=== PATIENT | male | born 1950 | race Caucasian/White ===

== ENCOUNTER → 2017-09-27 | Outpatient (CLI) | payer OTHER ==
[~2017-09-27] MED LIST: ASCA500 PO; ASCO10003 PO; ASPCH81X PO; ASPEC81 PO; CALC600T34 PO; CHOL1000 PO; CHOL100010 PO; GLUCTAB18 PO; LOSA100T2 PO; LOSA1TAB38 PO; MISCCAP80 PO; MISCTAB78 PO; MULT-1093 PO; MULT-506 PO; NAPR1TAB9 PO; PRLSR20 PO; PRT/20 PO; ROSU5TAB9 PO; SYN175 PO; TAMS0.4C38 PO; TRAM-10 PO; ZNTT/150 PO
--- NOTE | 2017-09-27 13:05 | DIAGNOSTIC IMAGING REPORT ---
MRI LEFT KNEE NO CONTRAST CLINICAL HISTORY: Left knee pain status post trauma COMPARISON STUDY: Outside conventional radiographic study dated 08/03/2017 FINDINGS: Imaging was performed in the sagittal, axial, and coronal planes. There is a nondisplaced subchondral fracture involving the medial aspect of the lateral tibial plateau with surrounding marrow edema. There is a subchondral cyst involving the medial aspect the medial tibial plateau. There is a subchondral cyst within the lateral aspect of the medial tibial plateau adjacent to cruciate insertion. There is a small suprapatellar joint effusion. The quadriceps and patellar tendons appear intact. The anterior and posterior cruciate ligaments appear intact. No tears a lateral meniscus are visualized. There is a horizontal tear involving the posterior horn of the medial meniscus. There is a small popliteal cyst. The medial and lateral collateral ligaments appear intact. There is an element of chondrosis involving both the medial and lateral joint compartments. IMPRESSION: 1. Tear involving the posterior horn the medial meniscus 2. No evidence of cruciate or collateral ligament disruption 3. Nondisplaced subchondral fracture involving the medial aspect of the lateral tibial plateau. Electronically signed by: Robin Busch M.D. 09/27/2017 1:03 PM Dictated Date/Time: 09/27/2017 12:58 PM
== END | disposition home or self-care (01) ==
LOC: C.MRIBC 11:56
PROVIDERS: ATTEND Orthopaedic Surgery
DX: S83.207A Unspecified tear of unspecified meniscus, current injury, left knee, initial encounter (principal); X58.XXXA Exposure to other specified factors, initial encounter

== ENCOUNTER → 2017-10-26 | Day surgery (SDC) | payer OTHER ==
[2017-10-01 09:24] VITALS: Ht 182.9 cm; Wt 111.4 kg
[~2017-10-26] VITALS: Ht 182.9 cm; Wt 111.4 kg
[~2017-10-26] MED LIST changes: -ASCA500 PO; -ASPEC81 PO; +ATROPINE SULFATE 0.1 MG/ML 5ML SYR IV PRN; +CEFAZOLIN 2000MG IV PUSH 10 ML IV SCH; -CHOL1000 PO; +EpHEDrine SULFATE INJ 50 MG/ML AMP IV PRN; +EpINEphrine INJ 1MG/ML AMP 1 MG/ML AMP ONE; +FENTANYL CITRATE INJ 50 MCG/1 ML 2 ML VIAL IV PRN; +FENTANYL CITRATE INJ 50 MCG/1 ML 2 ML VIAL ONE; -GLUCTAB18 PO; +KETOROLAC TROMETHAMINE 30 MG/ML VIAL ONE; +LACTATED RINGER'S 1000ML 1,000 ML IV SCH; +LIDOCAINE HCL 2% 2 ML VIAL (20MG/ML) ONE; -LOSA100T2 PO; +MIDAZOLAM HCL 1 MG/ML 2ML VIAL ONE; -MISCCAP80 PO; -MULT-506 PO; +ONDANSETRON INJ 2 MG/ML 2 ML VIAL IV PRN; +ONDANSETRON INJ 2 MG/ML 2 ML VIAL ONE; +OXYCODONE/ACETAMINOPHEN 5-325 TAB PO PRN; -PRLSR20 PO; +PROPOFOL IV EMULSION 10 MG/ML 20 ML VIAL IV ONE; +ROPIVACAINE 0.5% 5 MG/ML 30 ML VIAL ONE; -ROSU5TAB9 PO; +SODIUM CHLORIDE 0.9% 1000ML 1,000 ML IV SCH; -ZNTT/150 PO
--- NOTE | 2017-10-26 08:50 | History & Physical Bridge - SC ---
H&P Re-Evaluation Bridge Note: I have examined the patient, reviewed the History & Physical and in the interval since the performance of the History & Physical I have noted the following changes of clinical significance: No changes noted
[2017-10-26] MEDS: BUPIVACAINE 0.5 % 5 MG/1 ML MPF 30ML VIAL ONE ×2 (10:01→10:10)
--- NOTE | 2017-10-26 10:09 | [facility] Post Operative Brief Note ---
Immediate Operative Summary Operative Date Oct 26, 2017. Pre-Operative Diagnosis Left Knee Medial Meniscus Tear, Pain Post-Operative Diagnosis Same and Degenerative Joint Disease Procedure(s) Performed Left Knee Arthroscopy, Partial Medial and Lateral Meniscectomy, Removal of Loose Bodies Surgeon Dr. Macias Esthetician/Skin Therapist Surgeon(s) Kati De Los Santos PA-C Estimated Blood Loss 0ml Findings ABOVE Specimens None Anesthesia LMA Complication(s) None Disposition Recovery Room / PACU
--- NOTE | 2017-10-26 10:19 | Discharge Instructions-SurgCtr ---
Discharge Instructions Date of Service Oct 26, 2017. Visit Reason for Visit: Left Knee Medial Meniscus Tear, Pain Discharge Discharge Diagnosis / Problem: SAME ABOVE Discharge Goals Goal(s): Decrease discomfort, Improve function Activity Recommendations Activity Limitations: as noted below Lifting Limitations: gradually increase as tolerated Exercise/Sports Limitations: until after follow-up appointment Shower/Bathe: tomorrow Weightbearing Status: Left weightbearing (as tolerated) Anesthesia . Post Anesthesia Instructions: If you have had General Anesthesia or IV Sedation: * Do not drive today. * Resume driving when surgeon permits. * Do not make important decisions or sign legal documents today. * Call surgeon for: 1. Temperature elevations greater than 101 degrees F. 2. Uncontrollable pain. 3. Excessive bleeding. 4. Persistent nausea and vomiting. 5. Medication intolerance (nausea, vomiting or rash). * For nausea and vomiting use only clear liquids such as: tea, soda, bouillon until nausea subsides, then gradually increase diet as tolerated. * If you have any concerns or questions, call your surgeon's office. If physician is unavailable and it is an emergency, call 911 or go to the nearest emergency room. . Instructions / Follow-Up Instructions / Follow-Up MEDICATIONS: * Resume previous medications unless instructed otherwise by your surgeon. * Always take pain medication on a full stomach or with food to avoid upset stomach. * Do not drink alcohol or drive while taking narcotics. * Ibuprofen or Tylenol may be taken if narcotic not needed. SPECIAL CARE INSTRUCTIONS: __ None _X_ Keep extremity elevated and iced x 48 hours; apply ice 20-30 minutes 8-10 times/day. May remove at night. __ Crutches __ May discard when able __ Brace/Post-op shoe __ 24 hrs/day __ Remove at night _X_ Dressing __ Maintain until seen in office, may shower with plastic over site _X_ Remove dressings in 24-48 hours and then may shower _X_ Cover incisions with band-aids after showering __ Do not remove steri-strips Call physician if chills or temperature rises above 102 degrees or pain unrelieved by prescribed pain medications. Office [phone] Diet Recommendations Home Diet: resume previous diet Procedures Procedures Performed: Left Knee Arthroscopy, Partial Medial and Lateral Meniscectomy, Removal of Loose Bodies Pending Studies Studies pending at discharge: no Medical Emergencies . Who to Call and When: Medical Emergencies: If at any time you feel your situation is an emergency, please call 911 immediately. . Non-Emergent Contact Non-Emergency issues call your: Primary Care Provider . . "Provider Documentation" section prepared by Pierre De Los Santos. .
--- NOTE | 2017-10-26 10:51 | OPERATIVE REPORT ---
DATE OF OPERATION: 10/26/2017 PREOPERATIVE DIAGNOSIS: Medial meniscus tear left knee. POSTOPERATIVE DIAGNOSES: 1. Medial meniscus tear left knee. 2. Multiple small cartilaginous loose bodies throughout the left knee. 3. 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 4. Grade 2-3 DJD lateral tibial plateau. PROCEDURES: 1. Left knee arthroscopy. 2. Partial medial meniscectomy. 3. Removal of multiple small cartilaginous loose bodies. 4. Chondroplasty medial femoral condyle and lateral tibial plateau. SURGEON: Dr. Macias. RECEPTION INTERVIEWER: Pierre De Los Santos PA-C. ANESTHESIOLOGIST: Benedicto Watson M.D. ANESTHESIA: LMA. DRAINS: None. COMPLICATIONS: None. CONDITION: The patient tolerated the procedure well and returned to the recovery room in apparent satisfactory condition. INDICATIONS FOR SURGERY: Roger is a 67-year-old male who has had problems with the knee for quite some time. His exam, history and MRI are consistent with meniscus tear and recurrent effusions. Went over treatment options and elected to go ahead and proceed with surgery. Procedure, expected outcomes and side effects were all explained in detail. OPERATION AND FINDINGS: PROCEDURE: The patient was taken to the OR, at which time he was placed supine on the operating room table and put to sleep by anesthesia department. Examination of left knee was performed. Ligamentous marie was stable. He did have a knee effusion. Knee then was prepped and draped in usual sterile fashion for surgery, arthroscopic examination anteromedial and anterolateral portals. Immediately found a fair amount of fluid in his knee. Multiple loose bodies were floating throughout the knee area, 100s of them. We went ahead and washed all these out. Attention was given to the medial compartment, we found a posterior horn medial meniscus tear. We came in with upbiting scissors and full radius resector trimmed it back to a stable rim. We found articular changes to the tibial plateau, lateral side of his knee. He had medial femoral condyle, grade 2-3 debridement, chondroplasties were done here. There was a lot of synovitis in the knee joint that was shaved out. The knee then was copiously irrigated. All cannulas were removed. Portals were closed with 4-0 nylon sutures, 30 mL of ropivacaine, 10 mg of Toradol, and 1 mL of epinephrine had been placed in the knee joint. Placed a sterile dressing of Xeroform, 4 x 4, ABD, Sof-Rol, and Jarrell bandage and returned back to recovery room in apparent satisfactory condition. SURGICAL FINDINGS: Included: 1. Chronic medial meniscus tear. 2. He had multiple floating cartilaginous loose bodies. 3. 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 I attest to the content of the Intraoperative Record and any orders documented therein. Any exception s are noted below.
[2017-10-26 11:17] VITALS: TEMP 36.6
[2017-10-26 11:33] VITALS: BP 139/83; PULSE 68; O2SAT 97
--- NOTE | 2017-10-26 11:40 | Anesthesia Progress Nt - [facility] ---
Anesthesia Post Op Note Date & Time Oct 26, 2017 at 11:39 Vital Signs Pain Intensity: 0 Vital Signs Past 12 Hours Date Time Temp Pulse Resp B/P (MAP) Pulse Ox O2 Delivery O2 Flow Rate FiO2 10/26/17 11:33 68 16 139/83 (101) 97 Room Air 10/26/17 11:17 36.6 16 163/78 (106) 96 Room Air 10/26/17 11:01 139/75 10/26/17 10:58 60 17 10/26/17 10:58 60 17 95 10/26/17 10:56 140/83 10/26/17 10:53 64 17 10/26/17 10:53 59 17 95 10/26/17 10:52 62 15 10/26/17 10:52 61 15 96 10/26/17 10:51 122/78 10/26/17 10:47 62 17 94 10/26/17 10:47 62 17 10/26/17 10:46 147/82 10/26/17 10:42 64 14 10/26/17 10:42 62 14 95 10/26/17 10:41 145/83 10/26/17 10:40 36.9 95 Room Air 10/26/17 10:37 67 21 10/26/17 10:37 66 21 98 10/26/17 10:36 143/81 10/26/17 10:32 72 11 98 10/26/17 10:32 72 11 10/26/17 10:31 70 14 10/26/17 10:31 68 14 127/93 99 10/26/17 10:26 71 14 142/81 100 10/26/17 10:26 65 14 10/26/17 10:23 134/83 10/26/17 10:21 70 22 10/26/17 10:21 22 10/26/17 10:17 110/75 10/26/17 10:16 36.4 64 16 110/75 96 Mask 7 10/26/17 08:17 36.8 72 22 138/76 (96) 93 Room Air Notes Mental Status: alert / awake / arousable, participated in evaluation Pt Amnestic to Procedure: Yes Nausea / Vomiting: adequately controlled Pain: adequately controlled Airway Patency, RR, SpO2: stable & adequate BP & HR: stable & adequate Hydration State: stable & adequate Anesthetic Complications: no major complications apparent
== END | disposition home or self-care (01) ==
LOC: X.SURG 08:00
PROVIDERS: ATTEND Orthopaedic Surgery
DX: M23.222 Derangement of posterior horn of medial meniscus due to old tear or injury, left knee (principal); M17.12 Unilateral primary osteoarthritis, left knee; M23.42 Loose body in knee, left knee; I10 Essential (primary) hypertension; Z98.890 Other specified postprocedural states; Z90.89 Acquired absence of other organs; Z90.49 Acquired absence of other specified parts of digestive tract; Z85.850 Personal history of malignant neoplasm of thyroid

== ENCOUNTER 2018-03-23 02:33 | Inpatient (IN) | payer OTHER ==
[~2018-03-23] VITALS: Ht 185.4 cm; Wt 114.3 kg
[~2018-03-23 02:33] MED LIST changes: -ATROPINE SULFATE 0.1 MG/ML 5ML SYR IV PRN; -CEFAZOLIN 2000MG IV PUSH 10 ML IV SCH; -EpHEDrine SULFATE INJ 50 MG/ML AMP IV PRN; -EpINEphrine INJ 1MG/ML AMP 1 MG/ML AMP ONE; -FENTANYL CITRATE INJ 50 MCG/1 ML 2 ML VIAL IV PRN; -FENTANYL CITRATE INJ 50 MCG/1 ML 2 ML VIAL ONE; -KETOROLAC TROMETHAMINE 30 MG/ML VIAL ONE; -LACTATED RINGER'S 1000ML 1,000 ML IV SCH; -LIDOCAINE HCL 2% 2 ML VIAL (20MG/ML) ONE; -MIDAZOLAM HCL 1 MG/ML 2ML VIAL ONE; -ONDANSETRON INJ 2 MG/ML 2 ML VIAL IV PRN; -ONDANSETRON INJ 2 MG/ML 2 ML VIAL ONE; -OXYCODONE/ACETAMINOPHEN 5-325 TAB PO PRN; -PROPOFOL IV EMULSION 10 MG/ML 20 ML VIAL IV ONE; -ROPIVACAINE 0.5% 5 MG/ML 30 ML VIAL ONE; -SODIUM CHLORIDE 0.9% 1000ML 1,000 ML IV SCH
[2018-03-23] MEDS ORDERED: SODIUM CHLORIDE 0.9% 1000ML 1,000 ML IV STA (02:49)
[2018-03-23] MEDS ORDERED: HYDROmorphone INJ 1 MG/ML SYR IV STA (02:49)
[2018-03-23] MEDS ORDERED: ONDANSETRON INJ 2 MG/ML 2 ML VIAL IV STA (02:49)
[2018-03-23 03:03] LABS: BASO % 0.3 %; BASO ABS # 0.03 K/uL (0-0.2); EOS % 2.9 %; EOS ABS # 0.29 K/uL (0-0.5); HEMATOCRIT 41.2 % (42-52); HEMOGLOBIN 14.9 g/dL (14.0-18.0); IG# 0.03 K/uL (0.00-0.02); LYMPH % 16.1 %; LYMPH ABS # 1.61 K/uL (1.2-3.4); MEAN CORPUSCULAR HEMOGLOBIN 31.1 pg (25-34); MEAN CORPUSCULAR HGB CONC 36.2 g/dl (32-36); MEAN PLATELET VOLUME 8.7 fL (7.4-10.4); NEUT % 74.4 %; NEUT ABS # 7.43 K/uL (1.4-6.5); PLATELET COUNT 204 K/uL (130-400); RED CELL DISTRIBUTION WIDTH CV 12.2 % (11.5-14.5); RED CELL DISTRIBUTION WIDTH SD 38.5 fL (36.4-46.3); WHITE BLOOD COUNT 9.99 K/uL (4.8-10.8)
[2018-03-23 03:17] LABS: ISTAT CREATININE 1.1 mg/dl (0.6-1.3); ISTAT IONIZED CALCIUM 1.18 mmol/l (1.12-1.32); ISTAT POTASSIUM 3.6 mEq/L (3.3-5.0)
[2018-03-23] MEDS ORDERED: CALC500C70 PO (03:19)
[2018-03-23 03:21] LABS: ALT/SGPT 25 U/L (12-78); AST/SGOT 16 U/L (15-37); BLOOD UREA NITROGEN 18 mg/dl (7-18); CALCIUM 8.8 mg/dl (8.5-10.1); CARBON DIOXIDE 27 mmol/L (21-32); CREATININE 1.13 mg/dl (0.60-1.40); GLUCOSE 161 mg/dl (70-99); LIPASE 148 U/L (73-393); POTASSIUM 3.6 mmol/L (3.5-5.1); SODIUM 137 mmol/L (136-145)
[2018-03-23] MEDS ORDERED: TRAM-10 PO (03:23)
[2018-03-23] MEDS ORDERED: ROSU5TAB PO (03:24)
[2018-03-23] MEDS ORDERED: HYZ/10015 PO (03:25)
[2018-03-23 03:26] LABS: ALKALINE PHOSPHATASE 62 U/L (45-117); TOTAL PROTEIN 8.2 gm/dl (6.4-8.2)
--- NOTE | 2018-03-23 03:58 | EMERGENCY ROOM VISIT NOTE ---
History Report prepared by Uzair: Deneen Heck Under the Supervision of: Dr. Kael Pettit M.D. First contact with patient: 02:41 Chief Complaint: ABDOMINAL PAIN Stated Complaint: STOMACH PAIN History of Present Illness The patient is a 68 year old male who presents to the Emergency Room with complaints of worsening abdominal pain starting this evening. The patient states that he had a normal day and ate well. He reports that after dinner he went to sit in the recliner and had a sharp pain in his abdomen. He states that it felt similar to an ulcer because it was intermittent. He reports that he tried to fall asleep, but the pain became more frequent and started to feel like a bowel obstruction. He reports that the pain appears to radiate into his chest. The patient notes that he had a stress echo done on Wednesday that was normal. He states that the next day he felt like his heart was thumping and he had chest pressure. He states that it was not a pain, but it made him dizzy. He notes that it was the same day that he worked out in the sun and when his daughter took his blood pressure, it was low. He states that at this time he decided himself to cut his blood pressure medication in half. The patient denies fever and loss of consciousness. The patient notes that his last bowel obstruction was believed to come from scar tissue following two hernia repairs and a cholecystectomy. Source of History: patient Onset: this evening Position: abdomen Quality: sharp, other ("like a bowel obstruction") Timing: worsening Associated Symptoms: + chest pain (pressure), No LOC, No fevers Note: The patient complains of dizziness. Review of Systems See HPI for pertinent positives & negatives. A total of 10 systems reviewed and were otherwise negative. Past Medical & Surgical Medical Problems: (1) Aortic root dilation (2) BPH (benign prostatic hypertrophy) (3) GERD (gastroesophageal reflux disease) (4) History of thyroid cancer (5) Hyperlipidemia (6) Hypertension (7) Peptic ulcer (8) Pneumonia (9) Postsurgical hypothyroidism (10) SBO (small bowel obstruction) Surgical Problems: (1) H/O colonoscopy (2) H/O hernia repair (3) H/O thyroidectomy (4) H/O umbilical hernia repair (5) H/O ventral hernia repair (6) History of cholecystectomy (7) History of surgical removal of ganglion cyst (8) S/P laparoscopic cholecystectomy Family History FH: CAD (coronary artery disease) FATHER BROTHER Hypertension Social History Smoking Status: Former Smoker Drug Use: none Marital Status: Housing Status: lives with family Occupation Status: employed Current/Historical Medications Scheduled Ascorbic Acid (Vitamin C), 500 MG PO QAM Aspirin (Aspirin Chewable), 81 MG PO QAM Calcium Carbonate (Calcium), 300 MG PO DAILY Cholecalciferol (Vitamin D), 1 TAB PO QAM Hctz/Losartan (Hyzaar 25MG/100MG), 1 TAB PO DAILY Levothyroxine Sodium (Synthroid), 175 MCG PO QAM Misc Natural Products (Osteo Bi-Flex Joint Shiel), 2 TABS PO DAILY Multiple Vitamin (Multiple Vitamin), 1 TAB PO DAILY Pantoprazole (Protonix), 40 MG PO DAILY Probiotic Product (Probiotic), 1 TAB PO DAILY Rosuvastatin Calcium (Crestor), 5 MG PO DIRECTED Tamsulosin Hcl (Flomax), 0.4 MG PO BID Scheduled PRN Tramadol (Ultram), 50 MG PO Q4H PRN for Pain Allergies Coded Allergies: Lisinopril (Verified Adverse Reaction, Intermediate, COUGH, 03/23/18) Physical Exam Vital Signs Date Time Temp Pulse Resp B/P (MAP) Pulse Ox O2 Delivery O2 Flow Rate FiO2 03/23/18 03:31 84 18 124/64 95 Room Air 03/23/18 02:39 36.4 69 20 116/77 92 Room Air Physical Exam GENERAL: Patient is uncomfortable appearing and in moderate distress. EYES: No scleral icterus, unremarkable pupils. ENT: Mucous membranes are dry, no nasal congestion. NECK: No masses appreciated, no meningismus, trachea is midline. RESPIRATORY: No dyspnea. Clear to auscultation and equal bilaterally. No wheeze , no rhonchi. CARDIOVASCULAR: Regular rate and rhythm. No murmurs, rubs, gallops appreciated. GASTROINTESTINAL: Abdomen is mildly distended with hyperactive bowel sounds across upper abdomen. Mild diffuse tenderness to palpation. No peritonitis. No masses appreciated. BACK: No midline tenderness, no CVA tenderness EXTREMITIES: Normal motion all extremities, no cyanosis, no edema. NEUROLOGIC: Alert and oriented, no acute motor or sensory deficits, no focal weakness, cranial nerves grossly intact. SKIN: No rash, no jaundice, no diaphoresis. Medical Decision & Procedures ER Provider Diagnostic Interpretation: Stat Rad Radiology results and stated below per my review and radiologist interpretation: CT ABDOMEN & PELVIS With Contrast: Comparison 10/24/16 Multiple dilated loops of small bowel measuring up to a caliber of 3.9 cm, with scattered fluid levels. There is transition in the anterior right lower quadrant , concerning for acute obstruction. Mild reactive free fluid is present. No evidence for pneumoperitoneum or perforation. Urinary bladder wall thickening. Correlate for cystitis. Normal appendix. Cholecystectomy with associated biliary ectasia. 16 mm hypodense lesion in the lower splenic parenchyma which is slightly enlarged since 2016. Query cyst or pseudocyst. No hydronephrosis. Right renal cyst. Fatty inguinal hernias. Degenerative disc changes. L5 pars defects with anterolisthesis. Radiologist: Nik Daniels MD Laboratory Results 03/23/18 02:55 Red Blood Count 4.79, Mean Corpuscular Volume 86.0, Mean Corpuscular Hemoglobin 31.1, Mean Corpuscular Hemoglobin Concent 36.2, Mean Platelet Volume 8.7, Neutrophils (%) (Auto) 74.4, Lymphocytes (%) (Auto) 16.1, Monocytes (%) (Auto) 6.0, Eosinophils (%) (Auto) 2.9, Basophils (%) (Auto) 0.3, Neutrophils # (Auto) 7.43, Lymphocytes # (Auto) 1.61, Monocytes # (Auto) 0.60, Eosinophils # (Auto) 0.29, Basophils # (Auto) 0.03 03/23/18 02:55 Test 03/23/18 02:55 03/23/18 03:01 White Blood Count 9.99 K/uL (4.8-10.8) Red Blood Count 4.79 M/uL (4.7-6.1) Hemoglobin 14.9 g/dL (14.0-18.0) Hematocrit 41.2 % (42-52) Mean Corpuscular Volume 86.0 fL (80-100) Mean Corpuscular Hemoglobin 31.1 pg (25-34) Mean Corpuscular Hemoglobin Concent 36.2 g/dl (32-36) Platelet Count 204 K/uL (130-400) Mean Platelet Volume 8.7 fL (7.4-10.4) Neutrophils (%) (Auto) 74.4 % Lymphocytes (%) (Auto) 16.1 % Monocytes (%) (Auto) 6.0 % Eosinophils (%) (Auto) 2.9 % Basophils (%) (Auto) 0.3 % Neutrophils # (Auto) 7.43 K/uL (1.4-6.5) Lymphocytes # (Auto) 1.61 K/uL (1.2-3.4) Monocytes # (Auto) 0.60 K/uL (0.11-0.59) Eosinophils # (Auto) 0.29 K/uL (0-0.5) Basophils # (Auto) 0.03 K/uL (0-0.2) RDW Standard Deviation 38.5 fL (36.4-46.3) RDW Coefficient of Variation 12.2 % (11.5-14.5) Immature Granulocyte % (Auto) 0.3 % Immature Granulocyte # (Auto) 0.03 K/uL (0.00-0.02) Est Creatinine Clear Calc Drug Dose 82.5 ml/min Estimated GFR () 76.4 Estimated GFR (Non- 66.0 BUN/Creatinine Ratio 16.2 (10-20) Calcium Level 8.8 mg/dl (8.5-10.1) Total Bilirubin 0.6 mg/dl (0.2-1) Direct Bilirubin 0.1 mg/dl (0-0.2) Aspartate Amino Transf (AST/SGOT) 16 U/L (15-37) Alanine Aminotransferase (ALT/SGPT) 25 U/L (12-78) Alkaline Phosphatase 62 U/L (45-117) Total Creatine Kinase 124 U/L (39-308) Troponin I < 0.015 ng/ml (0-0.045) Total Protein 8.2 gm/dl (6.4-8.2) Albumin 4.0 gm/dl (3.4-5.0) Lipase 148 U/L (73-393) Bedside Hemoglobin 14.6 g/dl (14.0-18.0) Bedside Hematocrit 43 % (42-52) Bedside Sodium 139 mEq/L (135-144) Bedside Potassium 3.6 mEq/L (3.3-5.0) Bedside Chloride 99 mEq/L (101-112) Bedside Total CO2 26 mEq/l (24-31) Anion Gap 19.0 mmol/L (16-25) Bedside Blood Urea Nitrogen 20 mg/dl (7-18) Bedside Creatinine 1.1 mg/dl (0.6-1.3) Bedside Glucose (other) 165 mg/dl (70-99) Bedside Ionized Calcium (Balbir) 1.18 mmol/l (1.12-1.32) Laboratory results as reviewed by me. Medications Administered Medications (Trade) Dose Ordered Sig/Brock Route Start Time Stop Time Status Last Admin Dose Admin Sodium Chloride 1,000 ml @ 999 mls/hr Q1H1M STAT IV 03/23/18 02:49 03/23/18 03:49 DC 03/23/18 03:05 999 MLS/HR Hydromorphone HCl (Dilaudid Inj) 1.5 mg NOW STAT IV 03/23/18 02:49 03/23/18 02:51 DC 03/23/18 03:05 1.5 MG Ondansetron HCl (Zofran Inj) 4 mg NOW STAT IV 03/23/18 02:49 03/23/18 02:51 DC 03/23/18 03:05 4 MG Lorazepam (Ativan Inj) 1 mg NOW STAT IV 03/23/18 04:31 03/23/18 04:33 DC 03/23/18 04:57 1 MG ECG Per My Interpretation Indication: chest pain Rate (beats per minute): 61 Rhythm: normal sinus Findings: no acute ischemic change, no ectopy ED Course 0242: The patient was evaluated in room B2. A complete history and physical exam was performed. 0249: Ordered Zofran Inj 4 mg IV, Dilaudid Inj 1.5 mg IV, NSS 1000 ml @ 999 mls/ hr IV. 0313: I reevaluated the patient and he is feeling much better. 0357: I reevaluated the patient and he is feeling better. 0431: Ordered Ativan Inj 1 mg IV. 0433: I reevaluated the patient and discussed the need for an NG tube. 0437: Discussed the patient's case with Dr. [facility] Hospitalist. The patient will be evaluated for further treatment and disposition once general surgery is made aware. 0442: I discussed the patient's case with Dr. Adams- General Surgery. He will follow the patient as an inpatient in the morning. 0516: Nursing staff was able to place NG tube. Medical Decision Differential: Appendicitis, Diverticulitis, PUD/Gastritis, Biliary Pathology, UTI, Pyelonephritis, Renal Colic, Bowel Obstruction, Aortic Pathology, Acute Coronary Syndrome, amongst other pathologies entertained. 68 yr old male arrives for evaluation of abdominal pain and nausea. Hyperactive bowel sounds with some mild distension. history of obstruction a few years ago thus went right away with CT abdo/pelv revealing obstruction. Patient quite comfortable after pain medications even after several hours. No peritonitis and seems in no distress. Not tachy, wbc OK, and he does not appear to have ischemic gut. Reviewed case with Dr Adams who agrees with NG placement and monitoring on hospitalist service. Patient stable and agrees with this plan. Medication Reconcilliation Current Medication List: was personally reviewed by me Blood Pressure Screening Patient's blood pressure: Normal blood pressure Will be further monitored by the hospitalist. Consults Time Called: 043 Consulting Physician: Dr. Emmanuel Horton Hospitalist Returned Call: [phone] Discussed the patient's case with Dr. Emmanuel Horton Hospitalist. The patient will be evaluated for further treatment and disposition once general surgery is made aware. Additional Consults: Time Called: 044 Consulted Physician: Dr. Adams- General Surgery Returned Call: [phone] Additional Comments: I discussed the patient's case with Dr. Adams- General Surgery. He will follow the patient as an inpatient in the morning. Impression Primary Impression: Small bowel obstruction Scribe Attestation The scribe's documentation has been prepared under my direction and personally reviewed by me in its entirety. I confirm that the note above accurately reflects all work, treatment, procedures, and medical decision making performed by me. Departure Information Dispostion Being Evaluated By Hospitalist Referrals Boyd Kay M.D. (PCP) Patient Instructions My [facility]
[2018-03-23] MEDS ORDERED: OPTIRAY 320 IV PRN (04:15)
[2018-03-23] MEDS ORDERED: LORAZEPAM 2 MG/ML 1 ML VIAL IV STA (04:31)
[2018-03-23] MEDS ORDERED: ONDANSETRON INJ 2 MG/ML 2 ML VIAL IV PRN (05:00)
[2018-03-23 05:16] VITALS: O2SAT 96
[2018-03-23 05:30] VITALS: BP 127/66; PULSE 56; TEMP 36.6; O2SAT 96
[2018-03-23] MEDS ORDERED: CALC-393 PO (05:34)
[2018-03-23] MEDS ORDERED: PROB1TAB16 PO (05:34)
[2018-03-23] MEDS ORDERED: MISCTAB30 PO (05:34)
[2018-03-23] MEDS ORDERED: MULTTAB45 PO (05:34)
[2018-03-23] MEDS ORDERED: PANT1TAB3 PO (05:34)
[2018-03-23] MEDS ORDERED: MoRPHine SULFATE 4 MG/ML 1 ML CARP\\VIAL IV PRN (05:45)
[2018-03-23 05:59] VITALS: Ht 185.4 cm; Wt 114.3 kg
[2018-03-23] MEDS ORDERED: SODIUM CHLORIDE 0.9% 1000ML 1,000 ML IV SCH (06:00)
--- NOTE | 2018-03-23 06:12 | History and Physical ---
History & Physical Date & Time of Service: March 23, 2018 at 04:52 Chief Complaint: Stomach Pain Primary Care Physician: Boyd Kay M.D. History of Present Illness Source: patient, family, clinic records, hospital records 68 years old male with past medical history of aortic root dilation, hypertension, BPH, history of small bowel obstruction, history of thyroid cancer , history of umbilical and ventral hernia repair presented to the ER for mid epigastric abdominal pain that started last night. Patient said that he had the normal day yesterday but later after eating dinner he developed the abdominal pain in the mid epigastric area that radiated across the abdomen and around the right side of his chest. Patient said that he tried to fall asleep but the pain get worst. Patient described the pain has intermittent and feels similar like an ulcer. He said he had a normal bowel movement yesterday morning. Patient said that he had a similar episode back in 2016 and was managed conservatively. Patient recently had workup done by cardiology and had a stress echo done. Denies any chest pain, palpitation, dizziness, nausea, vomiting and diarrhea. He had a CT abdomen done in the ER that showed acute obstruction. Currently patient said pain improves to 5/10. Past Medical/Surgical History Medical Problems: (1) Aortic root dilation (2) BPH (benign prostatic hypertrophy) (3) GERD (gastroesophageal reflux disease) (4) History of thyroid cancer (5) Hyperlipidemia (6) Hypertension (7) Partial small bowel obstruction (8) Peptic ulcer (9) Pneumonia (10) Postsurgical hypothyroidism (11) SBO (small bowel obstruction) (12) Urinary retention Surgical Problems: (1) H/O colonoscopy (2) H/O hernia repair (3) H/O thyroidectomy (4) H/O umbilical hernia repair (5) H/O ventral hernia repair (6) History of cholecystectomy (7) History of surgical removal of ganglion cyst (8) S/P laparoscopic cholecystectomy Family History FH: CAD (coronary artery disease) FATHER BROTHER Hypertension Social History Smoking Status: Former Smoker Drug Use: none Marital Status: Housing status: lives alone Occupational Status: employed Allergies Coded Allergies: Lisinopril (Verified Adverse Reaction, Intermediate, COUGH, 03/23/18) Home Medications Scheduled Ascorbic Acid (Vitamin C), 500 MG PO QAM Aspirin (Aspirin Chewable), 81 MG PO QAM Calcium Carbonate (Calcium), 300 MG PO DAILY Cholecalciferol (Vitamin D), 1 TAB PO QAM Hctz/Losartan (Hyzaar 25MG/100MG), 1 TAB PO DAILY Levothyroxine Sodium (Synthroid), 175 MCG PO QAM Misc Natural Products (Osteo Bi-Flex Joint Shiel), 2 TABS PO DAILY Multiple Vitamin (Multiple Vitamin), 1 TAB PO DAILY Pantoprazole (Protonix), 40 MG PO DAILY Probiotic Product (Probiotic), 1 TAB PO DAILY Rosuvastatin Calcium (Crestor), 5 MG PO DIRECTED Tamsulosin Hcl (Flomax), 0.4 MG PO BID Scheduled PRN Tramadol (Ultram), 50 MG PO Q4H PRN for Pain Review of Systems Constitutional: No fever, No chills Eyes: No eye pain, No discharge ENT: No nasal symptoms, No sore throat Respiratory: No cough, No sputum, No shortness of breath Cardiovascular: No orthopnea, No claudication, No palpitations Abdomen: + pain, No vomiting, No diarrhea Musculoskeletal: No calf pain Genitourinary - Male: No hematuria, No dysuria Neurologic: No memory loss, No paralysis Psychiatric: No substance abuse Endocrine: No fatigue Hematologic / Lymphatic: No clotting problems Integumentary: No rash, No itch Physical Exam Vital Signs Date Time Temp Pulse Resp B/P (MAP) Pulse Ox O2 Delivery O2 Flow Rate FiO2 03/23/18 03:31 84 18 124/64 95 Room Air 03/23/18 02:39 36.4 69 20 116/77 92 Room Air General Appearance: WD/WN, no apparent distress Head: normocephalic, atraumatic Eyes: PERRL, EOMI ENT: normal ENT inspection, + pertinent finding (NGT in place) Neck: no JVD, trachea midline Respiratory/Chest: normal breath sounds, no respiratory distress, no accessory muscle use Cardiovascular: regular rate, rhythm, no JVD, no murmur Abdomen/GI: normal bowel sounds, + tenderness (mild on palpation), + distended (mildly) Back: normal inspection, no CVA tenderness Extremities/Musculoskelatal: no calf tenderness Neurologic/Psych: no motor/sensory deficits, alert, normal mood/affect, oriented x 3 Skin: warm/dry, no rash Diagnostics Laboratory Results Results Past 24 Hours Test 03/23/18 02:55 03/23/18 03:01 Range/Units White Blood Count 9.99 4.8-10.8 K/uL Red Blood Count 4.79 4.7-6.1 M/uL Hemoglobin 14.9 14.0-18.0 g/dL Hematocrit 41.2 42-52 % Mean Corpuscular Volume 86.0 80-100 fL Mean Corpuscular Hemoglobin 31.1 25-34 pg Mean Corpuscular Hemoglobin Concent 36.2 32-36 g/dl Platelet Count 204 130-400 K/uL Mean Platelet Volume 8.7 7.4-10.4 fL Neutrophils (%) (Auto) 74.4 % Lymphocytes (%) (Auto) 16.1 % Monocytes (%) (Auto) 6.0 % Eosinophils (%) (Auto) 2.9 % Basophils (%) (Auto) 0.3 % Neutrophils # (Auto) 7.43 1.4-6.5 K/uL Lymphocytes # (Auto) 1.61 1.2-3.4 K/uL Monocytes # (Auto) 0.60 0.11-0.59 K/uL Eosinophils # (Auto) 0.29 0-0.5 K/uL Basophils # (Auto) 0.03 0-0.2 K/uL RDW Standard Deviation 38.5 36.4-46.3 fL RDW Coefficient of Variation 12.2 11.5-14.5 % Immature Granulocyte % (Auto) 0.3 % Immature Granulocyte # (Auto) 0.03 0.00-0.02 K/uL Sodium Level 137 136-145 mmol/L Potassium Level 3.6 3.5-5.1 mmol/L Chloride Level 103 98-107 mmol/L Carbon Dioxide Level 27 21-32 mmol/L Anion Gap 7.0 19.0 16-25 mmol/L Blood Urea Nitrogen 18 7-18 mg/dl Creatinine 1.13 0.60-1.40 mg/dl Est Creatinine Clear Calc Drug Dose 82.5 ml/min Estimated GFR () 76.4 Estimated GFR (Non- 66.0 BUN/Creatinine Ratio 16.2 10-20 Random Glucose 161 70-99 mg/dl Calcium Level 8.8 8.5-10.1 mg/dl Total Bilirubin 0.6 0.2-1 mg/dl Direct Bilirubin 0.1 0-0.2 mg/dl Aspartate Amino Transf (AST/SGOT) 16 15-37 U/L Alanine Aminotransferase (ALT/SGPT) 25 12-78 U/L Alkaline Phosphatase 62 45-117 U/L Total Creatine Kinase 124 39-308 U/L Troponin I < 0.015 0-0.045 ng/ml Total Protein 8.2 6.4-8.2 gm/dl Albumin 4.0 3.4-5.0 gm/dl Lipase 148 73-393 U/L Bedside Hemoglobin 14.6 14.0-18.0 g/dl Bedside Hematocrit 43 42-52 % Bedside Sodium 139 135-144 mEq/L Bedside Potassium 3.6 3.3-5.0 mEq/L Bedside Chloride 99 101-112 mEq/L Bedside Total CO2 26 24-31 mEq/l Bedside Blood Urea Nitrogen 20 7-18 mg/dl Bedside Creatinine 1.1 0.6-1.3 mg/dl Bedside Glucose (other) 165 70-99 mg/dl Bedside Ionized Calcium (Balbir) 1.18 1.12-1.32 mmol/l Impression Assessment and Plan SBO Possible due to adhesions from prior abdominal surgeries including hernia repair , cholecystectomy CT a/p she is finding concerning for acute obstruction. No perforation or pneumoperitoneum Pain improved Will keep NPO for now Continue NGT Analgesics, antiemetics, IVF's Consult general surgery Check abdominal xray in am HYPERTENSION BP is stable Continue losartan Hold HCTZ to avoid dehydration HYPOTHYROIDISM will give IV levothyroxine for now DYSLIPIDEMIA Hold statin for now Aortic Root dilation Recent echo on 03/15/18 The aortic root and proximal ascending aorta are moderately enlarged with diameters of 4.8 centimeters and 4.6 centimeters respectively. Compared to the prior study dated 08/13/2016, the aortic root and proximal ascending aorta diameter. EF 55-59% GERD IV PPI BPH Hold tamsulosin for now DVT PROPHYLAXIS SCD's CODE status Full no mech vent Resuscitation Status VTE Prophylaxis Will order VTE Prophylaxis: Yes (SCDs)
--- NOTE | 2018-03-23 07:00 | DIAGNOSTIC IMAGING REPORT ---
ABD/PELVIS IV CONTRAST ONLY CT DOSE: 1160.26 mGy.cm HISTORY: Pain diffuse upper abdo pain, hyperactive bowels. h/o sbo TECHNIQUE: Multiaxial CT images of the abdomen and pelvis were performed following the use of intravenous contrast. A dose lowering technique was utilized adhering to the principles of ALARA. COMPARISON STUDY: 10/24/2016 FINDINGS: Minimal dependent basilar atelectasis. Mild biliary ductal prominence considered unremarkable in a postoperative/post cholecystectomy patient. Pancreas is uniform. Kidneys are negative for hydronephrosis. There is a cyst at the inferior aspect of the right kidney unchanged. There is also a splenic cyst at the inferior aspect of the spleen also unchanged. There are distended small bowel loops in the central and right lower quadrant abdominal region. There appears to be a transition zone in the area transaxial images 356 with no evidence for well-defined mass. Immediately superior to this level are several possible adhesions.. The colonic pattern is considered nonobstructive. The appendix is normal. There is trace amount of free fluid within the pelvic cul-de-sac. Bladder is midline. Regions are unremarkable. IMPRESSION: 1. Findings consistent with partial small bowel obstruction most likely in the right lower quadrant region of uncertain etiology. 2. A well-defined obstructing mass is not seen although there is a question of several local adhesions. 3. Several splenic and renal cysts stable from the prior exam. 4. Moderate biliary ductal prominence post cholecystectomy. This is considered chronic. The above report was generated using voice recognition software. It may contain grammatical, syntax or spelling errors. Electronically signed by: Juan A Cortez M.D. 03/23/2018 6:59 AM Dictated Date/Time: 03/23/2018 6:46 AM
[2018-03-23 07:43] VITALS: BP 118/67; PULSE 54; TEMP 36.4; O2SAT 98
[2018-03-23] MEDS ORDERED: LEVOTHYROXINE SODIUM INJ 88 MCG in SYRINGE 0 ML IV SCH (09:00)
--- NOTE | 2018-03-23 10:02 | DIAGNOSTIC IMAGING REPORT ---
ABDOMEN 2VIEW W/PA CHEST RTN CLINICAL HISTORY: SBO dyspnea COMPARISON STUDY: None Findings:. Negative chest. Nasogastric tube within the gastric fundus. Mild nonobstructive ileus. Nasogastric tube within the gastric fundus. IMPRESSION:: 1. Negative chest. 2. Mild nonobstructive ileus. 3. Nasogastric tube within the gastric fundus. The above report was generated using voice recognition software. It may contain grammatical, syntax or spelling errors. Electronically signed by: Juan A Cortez M.D. 03/23/2018 10:00 AM Dictated Date/Time: 03/23/2018 9:54 AM
--- NOTE | 2018-03-23 14:25 | Surgery Consultation ---
Consultation Date of Consultation: March 23, 2018. Attending Physician: Rowan Green DO Reason for Consultation: SBO History of Present Illness Roger is a 68-year-old male who presented to the emergency room late last evening with complaint of epigastric abdominal pain this started last night. Patient states the pain was similar to his previous small bowel obstruction in which he was admitted in September 2016. States he had a normal bowel movement yesterday. Associated nausea but no vomiting. Prior small bowel obstruction was treated conservatively. In the emergency room patient had abdominal CT which showed distended small bowel loops in the central right lower quadrant terminal region appears to be a transition zone in the area with no evidence for well-defined mass. There is question of several local adhesions. Labs show no leukocytosis vital signs stable. Since admission patient states he is feeling better. Passing some gas but no bowel movement as of yet. Abdominal pain minimal at this time. No nausea or vomiting. NG tube was placed early this morning there is no output in the canister at this time. Past Medical/Surgical History Past medical history: 1 aortic root dilation 2 hypertension 3 BPH 4 small bowel obstruction 5 thyroid cancer 6 umbilical and ventral hernia Past Surgical History: 1. Thyroidectomy 2. Cholecystectomy 3. Hernia repair Family History FH: CAD (coronary artery disease) FATHER BROTHER Hypertension Social History Smoking Status: Former Smoker Drug Use: none Marital Status: Housing Status: lives with family Occupation Status: employed Allergies Coded Allergies: Lisinopril (Verified Adverse Reaction, Intermediate, COUGH, 03/23/18) Home Medications Scheduled Ascorbic Acid (Vitamin C), 500 MG PO QAM Aspirin (Aspirin Chewable), 81 MG PO QAM Calcium Carbonate (Calcium), 300 MG PO DAILY Cholecalciferol (Vitamin D), 1 TAB PO QAM Hctz/Losartan (Hyzaar 25MG/100MG), 1 TAB PO DAILY Levothyroxine Sodium (Synthroid), 175 MCG PO QAM Misc Natural Products (Osteo Bi-Flex Joint Shiel), 2 TABS PO DAILY Multiple Vitamin (Multiple Vitamin), 1 TAB PO DAILY Pantoprazole (Protonix), 40 MG PO DAILY Probiotic Product (Probiotic), 1 TAB PO DAILY Rosuvastatin Calcium (Crestor), 5 MG PO DIRECTED Tamsulosin Hcl (Flomax), 0.4 MG PO BID Scheduled PRN Tramadol (Ultram), 50 MG PO Q4H PRN for Pain Current Inpatient Medications Current Inpatient Medications Medications (Trade) Dose Ordered Sig/Brock Route Start Time Stop Time Status Last Admin Dose Admin Ioversol (Optiray 320) 93 ml UD PRN IV 03/23/18 04:15 03/27/18 04:14 Ondansetron HCl (Zofran Inj) 4 mg Q6H PRN IV 03/23/18 05:00 04/22/18 04:59 Levothyroxine Sodium 88 mcg/ Syringe 4.4 ml @ 2 mls/min DAILY@09 IV 03/23/18 09:00 04/22/18 08:59 03/23/18 08:53 2 MLS/MIN Sodium Chloride 1,000 ml @ 75 mls/hr [id number] IV 03/23/18 06:00 03/23/18 19:19 03/23/18 06:28 75 MLS/HR Morphine Sulfate (MoRPHine SULFATE INJ) 1 mg Q3HWA PRN IV 03/23/18 05:45 04/06/18 05:44 Review of Systems Constitutional: No fever, No chills, No sweats Respiratory: No cough, No shortness of breath Cardiovascular: No chest pain Abdomen: + pain, + nausea, No vomiting, No diarrhea, No constipation, No GI bleeding Genitourinary - Male: No hematuria Endocrine: No fatigue Hematologic / Lymphatic: No abnormal bleeding/bruising Integumentary: No rash Physical Exam Date Time Temp Pulse Resp B/P (MAP) Pulse Ox O2 Delivery O2 Flow Rate FiO2 03/23/18 07:43 36.4 54 16 118/67 (84) 98 Room Air 03/23/18 07:35 Room Air 03/23/18 05:59 Room Air 03/23/18 05:30 36.6 56 16 127/66 (86) 96 Room Air 03/23/18 05:16 59 17 122/64 96 Room Air 03/23/18 03:31 84 18 124/64 95 Room Air 03/23/18 02:39 36.4 69 20 116/77 92 Room Air General Appearance: WD/WN, no apparent distress Head: normocephalic, atraumatic Eyes: sclerae normal ENT: hearing grossly normal Neck: trachea midline Respiratory/Chest: no respiratory distress, no accessory muscle use Abdomen/GI: non tender, soft, no organomegaly, no pulsatile mass Neurologic/Psych: alert, normal mood/affect, oriented x 3 Skin: normal color, warm/dry, no rash Laboratory Results Last 24 Hours Test 03/23/18 02:55 03/23/18 03:01 White Blood Count 9.99 K/uL Red Blood Count 4.79 M/uL Hemoglobin 14.9 g/dL Hematocrit 41.2 % Mean Corpuscular Volume 86.0 fL Mean Corpuscular Hemoglobin 31.1 pg Mean Corpuscular Hemoglobin Concent 36.2 g/dl Platelet Count 204 K/uL Mean Platelet Volume 8.7 fL Neutrophils (%) (Auto) 74.4 % Lymphocytes (%) (Auto) 16.1 % Monocytes (%) (Auto) 6.0 % Eosinophils (%) (Auto) 2.9 % Basophils (%) (Auto) 0.3 % Neutrophils # (Auto) 7.43 K/uL Lymphocytes # (Auto) 1.61 K/uL Monocytes # (Auto) 0.60 K/uL Eosinophils # (Auto) 0.29 K/uL Basophils # (Auto) 0.03 K/uL RDW Standard Deviation 38.5 fL RDW Coefficient of Variation 12.2 % Immature Granulocyte % (Auto) 0.3 % Immature Granulocyte # (Auto) 0.03 K/uL Sodium Level 137 mmol/L Potassium Level 3.6 mmol/L Chloride Level 103 mmol/L Carbon Dioxide Level 27 mmol/L Anion Gap 7.0 mmol/L 19.0 mmol/L Blood Urea Nitrogen 18 mg/dl Creatinine 1.13 mg/dl Est Creatinine Clear Calc Drug Dose 82.5 ml/min Estimated GFR () 76.4 Estimated GFR (Non- 66.0 BUN/Creatinine Ratio 16.2 Random Glucose 161 mg/dl Calcium Level 8.8 mg/dl Total Bilirubin 0.6 mg/dl Direct Bilirubin 0.1 mg/dl Aspartate Amino Transf (AST/SGOT) 16 U/L Alanine Aminotransferase (ALT/SGPT) 25 U/L Alkaline Phosphatase 62 U/L Total Creatine Kinase 124 U/L Troponin I < 0.015 ng/ml Total Protein 8.2 gm/dl Albumin 4.0 gm/dl Lipase 148 U/L Hepatitis C Antibody Screen NEG Bedside Hemoglobin 14.6 g/dl Bedside Hematocrit 43 % Bedside Sodium 139 mEq/L Bedside Potassium 3.6 mEq/L Bedside Chloride 99 mEq/L Bedside Total CO2 26 mEq/l Bedside Blood Urea Nitrogen 20 mg/dl Bedside Creatinine 1.1 mg/dl Bedside Glucose (other) 165 mg/dl Bedside Ionized Calcium (Balbir) 1.18 mmol/l Assessment & Plan 68-year-old male with previous history of small bowel obstruction treated conservatively in September 2016 presents with sudden epigastric abdominal pain with associated nausea that started last evening. CT scan showing dilated small bowel loops with transition zone in the right lower quadrant concerning for multiple adhesions. Patient is now passing gas no bowel movement and pain has improved. There is minimal NG tube output. Vitals stable and there is no leukocytosis. Abdominal x-ray this morning showing a nonobstructive ileus pattern. Plan: Continue conservative management as of now continue NG tube to low intermittent suction. If patient continues to pass flatus, may remove NG tube and start clear liquid diet. Continue IV fluids, IV pain management as needed IV Zofran as needed May have oral meds including Flomax, clamp NG tube for 30 minutes following oral meds Continue current medical management Dr. Momin has seen and examined patient agrees with above.
[2018-03-23 15:45] VITALS: BP 110/66; PULSE 55; TEMP 36.5; O2SAT 97
[2018-03-23] MEDS ORDERED: TRAMADOL HCL 50 MG TAB PO PRN (18:15)
[2018-03-23] MEDS: TAMSULOSIN HCL 0.4 MG CAP PO SCH (21:44)
[2018-03-23 22:59] VITALS: BP 115/69; PULSE 50; TEMP 36.7; O2SAT 98
--- NOTE | 2018-03-24 04:30 | Progress Note ---
Medicine Progress Note Date & Time of Visit: March 23, 2018 at 13:49. Subjective 68 yoM with h/o multiple abdominal surgeries presented with abdominal pain without nausea or vomiting and was admitted for a partial SBO. He did receive an NGT in the ER and has been pain-free since admission. His NGT has not put out anything since it was placed, and the patient reports being hungry. He denies any other symptoms such as chest pain or SOB. He is passing flatus consistently but denies a BM. Objective Last 8 Hrs Date Time Temp Pulse Resp B/P (MAP) Pulse Ox O2 Delivery O2 Flow Rate FiO2 03/23/18 07:43 36.4 54 16 118/67 (84) 98 Room Air 03/23/18 07:35 Room Air 03/23/18 05:59 Room Air Physical Exam: GEN: WNWD, in no acute distress, alert and appropriate, NGT in place. HEENT: NC/AT, PERRL, normal sclerae, MMM CARDIO: reg rate, S1/2 heard without m/g/r LUNGS: CTA bilaterally, no crackles, rales or wheezes, good diaphragmatic excursion ABD: soft, non-tender, non-distended, no rebound or guarding EXTREMITY: RP and DP palpable 2+ bilat, no LE swelling or edema, extremities are warm and well-perfused NEURO: CN 2-12 grossly intact, no gross focal deficit MUSC: 5/5 strength throughout, no focal deficits SKIN: warm and dry Laboratory Results: 03/23/18 02:55 Red Blood Count 4.79, Mean Corpuscular Volume 86.0, Mean Corpuscular Hemoglobin 31.1, Mean Corpuscular Hemoglobin Concent 36.2, Mean Platelet Volume 8.7, Neutrophils (%) (Auto) 74.4, Lymphocytes (%) (Auto) 16.1, Monocytes (%) (Auto) 6.0, Eosinophils (%) (Auto) 2.9, Basophils (%) (Auto) 0.3, Neutrophils # (Auto) 7.43, Lymphocytes # (Auto) 1.61, Monocytes # (Auto) 0.60, Eosinophils # (Auto) 0.29, Basophils # (Auto) 0.03 03/23/18 02:55 Test 03/23/18 02:55 03/23/18 03:01 White Blood Count 9.99 K/uL (4.8-10.8) Red Blood Count 4.79 M/uL (4.7-6.1) Hemoglobin 14.9 g/dL (14.0-18.0) Hematocrit 41.2 % (42-52) Mean Corpuscular Volume 86.0 fL (80-100) Mean Corpuscular Hemoglobin 31.1 pg (25-34) Mean Corpuscular Hemoglobin Concent 36.2 g/dl (32-36) Platelet Count 204 K/uL (130-400) Mean Platelet Volume 8.7 fL (7.4-10.4) Neutrophils (%) (Auto) 74.4 % Lymphocytes (%) (Auto) 16.1 % Monocytes (%) (Auto) 6.0 % Eosinophils (%) (Auto) 2.9 % Basophils (%) (Auto) 0.3 % Neutrophils # (Auto) 7.43 K/uL (1.4-6.5) Lymphocytes # (Auto) 1.61 K/uL (1.2-3.4) Monocytes # (Auto) 0.60 K/uL (0.11-0.59) Eosinophils # (Auto) 0.29 K/uL (0-0.5) Basophils # (Auto) 0.03 K/uL (0-0.2) RDW Standard Deviation 38.5 fL (36.4-46.3) RDW Coefficient of Variation 12.2 % (11.5-14.5) Immature Granulocyte % (Auto) 0.3 % Immature Granulocyte # (Auto) 0.03 K/uL (0.00-0.02) Est Creatinine Clear Calc Drug Dose 82.5 ml/min Estimated GFR () 76.4 Estimated GFR (Non- 66.0 BUN/Creatinine Ratio 16.2 (10-20) Calcium Level 8.8 mg/dl (8.5-10.1) Total Bilirubin 0.6 mg/dl (0.2-1) Direct Bilirubin 0.1 mg/dl (0-0.2) Aspartate Amino Transf (AST/SGOT) 16 U/L (15-37) Alanine Aminotransferase (ALT/SGPT) 25 U/L (12-78) Alkaline Phosphatase 62 U/L (45-117) Total Creatine Kinase 124 U/L (39-308) Troponin I < 0.015 ng/ml (0-0.045) Total Protein 8.2 gm/dl (6.4-8.2) Albumin 4.0 gm/dl (3.4-5.0) Lipase 148 U/L (73-393) Hepatitis C Antibody Screen NEG (NEG) Bedside Hemoglobin 14.6 g/dl (14.0-18.0) Bedside Hematocrit 43 % (42-52) Bedside Sodium 139 mEq/L (135-144) Bedside Potassium 3.6 mEq/L (3.3-5.0) Bedside Chloride 99 mEq/L (101-112) Bedside Total CO2 26 mEq/l (24-31) Anion Gap 19.0 mmol/L (16-25) Bedside Blood Urea Nitrogen 20 mg/dl (7-18) Bedside Creatinine 1.1 mg/dl (0.6-1.3) Bedside Glucose (other) 165 mg/dl (70-99) Bedside Ionized Calcium (Balbir) 1.18 mmol/l (1.12-1.32) Last 24 Hours Test 03/23/18 02:55 03/23/18 03:01 White Blood Count 9.99 K/uL Red Blood Count 4.79 M/uL Hemoglobin 14.9 g/dL Hematocrit 41.2 % Mean Corpuscular Volume 86.0 fL Mean Corpuscular Hemoglobin 31.1 pg Mean Corpuscular Hemoglobin Concent 36.2 g/dl Platelet Count 204 K/uL Mean Platelet Volume 8.7 fL Neutrophils (%) (Auto) 74.4 % Lymphocytes (%) (Auto) 16.1 % Monocytes (%) (Auto) 6.0 % Eosinophils (%) (Auto) 2.9 % Basophils (%) (Auto) 0.3 % Neutrophils # (Auto) 7.43 K/uL Lymphocytes # (Auto) 1.61 K/uL Monocytes # (Auto) 0.60 K/uL Eosinophils # (Auto) 0.29 K/uL Basophils # (Auto) 0.03 K/uL RDW Standard Deviation 38.5 fL RDW Coefficient of Variation 12.2 % Immature Granulocyte % (Auto) 0.3 % Immature Granulocyte # (Auto) 0.03 K/uL Sodium Level 137 mmol/L Potassium Level 3.6 mmol/L Chloride Level 103 mmol/L Carbon Dioxide Level 27 mmol/L Anion Gap 7.0 mmol/L 19.0 mmol/L Blood Urea Nitrogen 18 mg/dl Creatinine 1.13 mg/dl Est Creatinine Clear Calc Drug Dose 82.5 ml/min Estimated GFR () 76.4 Estimated GFR (Non- 66.0 BUN/Creatinine Ratio 16.2 Random Glucose 161 mg/dl Calcium Level 8.8 mg/dl Total Bilirubin 0.6 mg/dl Direct Bilirubin 0.1 mg/dl Aspartate Amino Transf (AST/SGOT) 16 U/L Alanine Aminotransferase (ALT/SGPT) 25 U/L Alkaline Phosphatase 62 U/L Total Creatine Kinase 124 U/L Troponin I < 0.015 ng/ml Total Protein 8.2 gm/dl Albumin 4.0 gm/dl Lipase 148 U/L Hepatitis C Antibody Screen NEG Bedside Hemoglobin 14.6 g/dl Bedside Hematocrit 43 % Bedside Sodium 139 mEq/L Bedside Potassium 3.6 mEq/L Bedside Chloride 99 mEq/L Bedside Total CO2 26 mEq/l Bedside Blood Urea Nitrogen 20 mg/dl Bedside Creatinine 1.1 mg/dl Bedside Glucose (other) 165 mg/dl Bedside Ionized Calcium (Balbir) 1.18 mmol/l Assessment & Plan 68 yoM with h/o multiple abdominal surgeries presented with abdominal pain without nausea or vomiting and was admitted for a partial SBO. He did receive an NGT in the ER and has been pain-free since admission. His NGT has not put out anything since it was placed, and the patient reports being hungry. He denies any other symptoms such as chest pain or SOB. He is passing flatus consistently but denies a BM. 1. partial SBO- possibly 2/2 adhesions from prior surgeries, however, this patient started taking Metamucil for consitpation a few weeks ago fairly consistently. He was advised to use Miralax for constipation instead which he has used in the past. NGT was clamped for approx 6 hours with no increase in pain or abdominal distension and was pulled with advancement of diet to clear liquids. 2. BPH-urinating well, Flomax was continued 3. HTN-stable. NGT being pulled and Hyzaar ordered for am. 4. Hypothyroidism-cont Synthroid; switched back to PO. DVT proph-Enoxaparin added CODE status [facility]-plan for home in 1-2 days. Consultants: General Surgery-Dr. Momin Current Inpatient Medications: Current Inpatient Medications Medications (Trade) Dose Ordered Sig/Brock Route Start Time Stop Time Status Last Admin Dose Admin Ioversol (Optiray 320) 93 ml UD PRN IV 03/23/18 04:15 03/27/18 04:14 Ondansetron HCl (Zofran Inj) 4 mg Q6H PRN IV 03/23/18 05:00 04/22/18 04:59 Levothyroxine Sodium 88 mcg/ Syringe 4.4 ml @ 2 mls/min DAILY@09 IV 03/23/18 09:00 04/22/18 08:59 03/23/18 08:53 2 MLS/MIN Sodium Chloride 1,000 ml @ 75 mls/hr [id number] IV 03/23/18 06:00 03/23/18 19:19 03/23/18 06:28 75 MLS/HR Morphine Sulfate (MoRPHine SULFATE INJ) 1 mg Q3HWA PRN IV 03/23/18 05:45 04/06/18 05:44 Tamsulosin HCl (Flomax Cap) 0.4 mg BID PO 03/23/18 21:00 04/22/18 20:59
[2018-03-24 05:17] LABS: HEMATOCRIT 37.7 % (42-52); MEAN CELL VOLUME 87.3 fL (80-100); MEAN CORPUSCULAR HEMOGLOBIN 30.1 pg (25-34); MEAN CORPUSCULAR HGB CONC 34.5 g/dl (32-36); MEAN PLATELET VOLUME 8.8 fL (7.4-10.4); PLATELET COUNT 168 K/uL (130-400); RED CELL DISTRIBUTION WIDTH CV 12.3 % (11.5-14.5); RED CELL DISTRIBUTION WIDTH SD 39.8 fL (36.4-46.3); WHITE BLOOD COUNT 5.14 K/uL (4.8-10.8)
[2018-03-24 05:27] LABS: PTT PATIENT 24.2 SECONDS (21.0-31.0)
[2018-03-24 05:44] LABS: CALCIUM 8.1 mg/dl (8.5-10.1); CREATININE 0.9 mg/dl (0.60-1.40); POTASSIUM 3.9 mmol/L (3.5-5.1)
[2018-03-24] MEDS ORDERED: LEVOTHYROXINE 175 MCG TAB PO SCH (06:00)
[2018-03-24 07:28] VITALS: BP 114/65; PULSE 59; TEMP 36.6; O2SAT 96
[2018-03-24] MEDS ORDERED: PANTOprazole SOD 40 MG TAB PO SCH (09:00)
[2018-03-24] MEDS ORDERED: ASPIRIN 81 MG ECTAB PO SCH (09:00)
[2018-03-24] MEDS ORDERED: ENOXAPARIN 40 MG/0.4 ML SYR SQ SCH (09:00)
[2018-03-24] MEDS ORDERED: LOSARTAN/HCTZ 50-12.5 EA TAB PO SCH (09:00)
[2018-03-24] MEDS ORDERED: CHOLECALCIFEROL 1000 INTER.UNIT TAB PO SCH (09:00)
[2018-03-24] MEDS: TAMSULOSIN HCL 0.4 MG CAP PO SCH (09:08)
--- NOTE | 2018-03-24 09:44 | Surgery Progress Note ---
Surgery Progress Note Date of Service March 24, 2018. Subjective Post OP Day: HD # 1 + feeling well, + flatus, + pain controlled, + diet (tolerated clears , hungry ) , No complaints, No bowel movement, No nausea, No vomiting Objective Vital Signs: Date Time Temp Pulse Resp B/P (MAP) Pulse Ox O2 Delivery O2 Flow Rate FiO2 03/24/18 07:28 36.6 59 16 114/65 (81) 96 Room Air 03/23/18 23:05 Room Air 03/23/18 22:59 36.7 50 15 115/69 (84) 98 Room Air 03/23/18 15:50 Room Air 03/23/18 15:45 36.5 55 19 110/66 (81) 97 Room Air General Appearance: WD/WN, no apparent distress Head: normocephalic, atraumatic Neck: trachea midline Respiratory/Chest: no respiratory distress, no accessory muscle use Abdomen: normal bowel sounds, non tender, non distended, soft, no organomegaly , no pulsatile mass Laboratory Results: Results Past 24 Hours Test 03/24/18 05:04 Range/Units White Blood Count 5.14 4.8-10.8 K/uL Red Blood Count 4.32 4.7-6.1 M/uL Hemoglobin 13.0 14.0-18.0 g/dL Hematocrit 37.7 42-52 % Mean Corpuscular Volume 87.3 80-100 fL Mean Corpuscular Hemoglobin 30.1 25-34 pg Mean Corpuscular Hemoglobin Concent 34.5 32-36 g/dl RDW Standard Deviation 39.8 36.4-46.3 fL RDW Coefficient of Variation 12.3 11.5-14.5 % Platelet Count 168 130-400 K/uL Mean Platelet Volume 8.8 7.4-10.4 fL Prothrombin Time 10.7 9.0-12.0 SECONDS Prothromb Time International Ratio 1.0 0.9-1.1 Activated Partial Thromboplast Time 24.2 21.0-31.0 SECONDS Partial Thromboplastin Ratio 0.9 Sodium Level 139 136-145 mmol/L Potassium Level 3.9 3.5-5.1 mmol/L Chloride Level 109 98-107 mmol/L Carbon Dioxide Level 26 21-32 mmol/L Anion Gap 4.0 3-11 mmol/L Blood Urea Nitrogen 10 7-18 mg/dl Creatinine 0.90 0.60-1.40 mg/dl Est Creatinine Clear Calc Drug Dose 102.6 ml/min Estimated GFR () 100.6 Estimated GFR (Non- 86.8 BUN/Creatinine Ratio 11.4 10-20 Random Glucose 99 70-99 mg/dl Calcium Level 8.1 8.5-10.1 mg/dl Magnesium Level 2.3 1.8-2.4 mg/dl Assessment & Plan PSBO- resolving -vitals stable, afebrile, no leukocytosis - passing flatus, feels may need to have bm - tolerating clear liquids - abdomen completely soft, nondistended nontender Plan: Advance diet to low fiber for lunch No acute surgical intervention required Continue current medical management Our services signing off, thank you for consultation
[2018-03-24 12:22] VITALS: BP 114/65; PULSE 59; TEMP 36.6; O2SAT 96
--- NOTE | 2018-03-24 12:55 | Discharge Summary ---
Discharge Summary Date of Service March 24, 2018. Discharge Summary Admission Date: March 23, 2018 at 04:51 Discharge Date: March 24, 2018 Discharge Disposition: Home Principal Diagnosis: partial SBO Procedures: NGT placement Vaccinations: None. Consultations: General Surgery-Dr. Momin Pending Studies/Follow-Up: see instructions below. Medication Reconciliation Continued Medications: Ascorbic Acid (Vitamin C) 1,000 Mg Tab 500 MG PO QAM Aspirin (Aspirin Chewable) 81 Mg Chew 81 MG PO QAM Calcium Carbonate (Calcium) 600 Mg Tab 300 MG PO DAILY Cholecalciferol (Vitamin D) 1,000 Unit Tab 1 TAB PO QAM Hctz/Losartan (Hyzaar 25MG/100MG) Tab 1 TAB PO DAILY, #90 TAB Levothyroxine Sodium (Synthroid) 175 Mcg Tab 175 MCG PO QAM Misc Natural Products (Osteo Bi-Flex Joint Shiel) 1 Tab Tab 2 TABS PO DAILY Multiple Vitamin (Multiple Vitamin) 1 Tab Tab 1 TAB PO DAILY Pantoprazole (Protonix) 40 Mg Tab 40 MG PO DAILY, TAB Probiotic Product (Probiotic) 1 Tab Tab 1 TAB PO DAILY Rosuvastatin Calcium (Crestor) 5 Mg Tab 5 MG PO DIRECTED, TAB pt states trying to take this med 1 time weekly on mondays Tamsulosin Hcl (Flomax) 0.4 Mg Cap 0.4 MG PO BID, CAP Tramadol (Ultram) 50 Mg Tab 50 MG PO Q4H PRN for Pain, TAB Admission Information HPI (per Admitting provider): 68 years old male with past medical history of aortic root dilation, hypertension, BPH, history of small bowel obstruction, history of thyroid cancer , history of umbilical and ventral hernia repair presented to the ER for mid epigastric abdominal pain that started last night. Patient said that he had the normal day yesterday but later after eating dinner he developed the abdominal pain in the mid epigastric area that radiated across the abdomen and around the right side of his chest. Patient said that he tried to fall asleep but the pain get worst. Patient described the pain has intermittent and feels similar like an ulcer. He said he had a normal bowel movement yesterday morning. Patient said that he had a similar episode back in 2016 and was managed conservatively. Patient recently had workup done by cardiology and had a stress echo done. Denies any chest pain, palpitation, dizziness, nausea, vomiting and diarrhea. He had a CT abdomen done in the ER that showed acute obstruction. Currently patient said pain improves to 5/10. Physical Exam (per Admitting): General Appearance: WD/WN, no apparent distress Head: normocephalic, atraumatic Eyes: PERRL, EOMI ENT: normal ENT inspection, + pertinent finding (NGT in place) Neck: no JVD, trachea midline Respiratory/Chest: normal breath sounds, no respiratory distress, no accessory muscle use Cardiovascular: regular rate, rhythm, no JVD, no murmur Abdomen/GI: normal bowel sounds, + tenderness (mild on palpation), + distended (mildly) Back: normal inspection, no CVA tenderness Extremities/Musculoskelatal: no calf tenderness Neurologic/Psych: no motor/sensory deficits, alert, normal mood/affect, oriented x 3 Skin: warm/dry, no rash Hospital Course 68 yoM with h/o multiple abdominal surgeries presented with abdominal pain without nausea or vomiting and was admitted for a partial SBO. He did receive an NGT in the ER and has been pain-free since admission. His NGT had not put out anything since it was placed (12-18 hours), and the patient reported being hungry so this was removed and diet was advanced over the next 24 hours successfully with complete resolution of pain. He was passing flatus prior to discharge. 1. partial SBO- possibly 2/2 adhesions from prior surgeries, however, this patient started taking Metamucil for constipation a few weeks ago fairly consistently. He was advised to use Miralax for constipation instead and stick to a low fiber diet. 2. BPH-urinating well, Flomax was continued 3. HTN-stable. NGT being pulled and Hyzaar ordered for am. 4. Hypothyroidism-cont Synthroid; switched back to PO. DVT proph-Enoxaparin added CODE status Full no [facility] vent Dispo-to home in stable condition. Physical exam was unremarkable at time of discharge. He was hemodynamically stable and afebrile. He was mentating and ambulating at baseline and now. Post follow-up with PCP was recommended. Total time spent on discharge = 60 minutes This includes examination of the patient, discharge planning, medication reconciliation, and communication with other providers. Discharge Instructions [address] [address] Discharge Medical Patient Name: Roger Holbrook Unit Number: [id number] Date of : 1950 Patient Status: Admitted Inpatient Attending Doctor: Rowan Green DO DI: Medical v5 Discharge Instructions Date of Service March 24, 2018. Admission Reason for Admission: Small Bowel Obstruction Discharge Discharge Diagnosis / Problem: partial SBO Discharge Goals Goal(s): Prevent Disease Progression Activity Recommendations Activity Limitations: per Instructions/Follow-up section . Instructions / Follow-Up Instructions / Follow-Up Please continue all medications as instructed. It is recommended to avoid Metamucil in the future and use Miralax instead for constipation. You have been scheduled for a hospital follow-up appointment with Dr. Boyd Kay on 03/28 at 9:45 AM. It was a pleasure taking care of you! Call if you have any questions or problems. You can reach a [facility] hours a day by calling [phone]. Take care of yourself. Rowan Green DO [facility] Current Hospital Diet Patient's current hospital diet: Low Fiber Diet Discharge Diet Recommended Diet: Low Fiber Diet Procedures Procedures Performed: NGT placement. Pending Studies Studies pending at discharge: no Medical Emergencies . Who to Call and When: Medical Emergencies: If at any time you feel your situation is an emergency, please call 911 immediately. . Non-Emergent Contact Non-Emergency issues call your: Primary Care Provider . . "Provider Documentation" section prepared by Rowan Green. . Additional Copies To Boyd Kay M.D.
[2018-03-28] MEDS ORDERED: ROSUVASTATIN CALCIUM 10 MG TAB PO SCH (21:00)
== END 2018-03-24 13:57 | disposition home or self-care (01) | DRG 390 ==
LOC: C.EDB 02:34 → C.MSN 04:51 → ENRESERV 05:09
PROVIDERS: ADMIT Internal Medicine; ATTEND Hospitalist
DX: K56.51 Intestinal adhesions [bands], with partial obstruction (principal); I10 Essential (primary) hypertension; N40.0 Benign prostatic hyperplasia without lower urinary tract symptoms; K21.9 Gastro-esophageal reflux disease without esophagitis; E78.5 Hyperlipidemia, unspecified; E89.0 Postprocedural hypothyroidism; Z79.899 Other long term (current) drug therapy; Z79.82 Long term (current) use of aspirin; Z90.49 Acquired absence of other specified parts of digestive tract; Z85.850 Personal history of malignant neoplasm of thyroid; Z98.890 Other specified postprocedural states; Z87.891 Personal history of nicotine dependence; Z88.8 Allergy status to other drugs, medicaments and biological substances; Z82.49 Family history of ischemic heart disease and other diseases of the circulatory system

== ENCOUNTER 2020-11-08 17:59 | Inpatient (IN) ==
--- NOTE | 2020-11-08 18:13 | Emergency Department Note ---
Impression & Plan Closed fracture of left hip, Fall ED Provider Note NAME: ANG CHIANG AGE: 70 SEX: M : 1950 ARRIVES VIA: Ambulance INFORMANT: [Patient][ems] ED PROVIDER(S): [Adrian Nguyễn MD] CHIEF COMPLAINT: Left hip pain HISTORY OF PRESENT ILLNESS: The patient is a 70-year-old male who states that about an hour and a half ago he slipped on the ice and fell onto his left hip. He is now unable to bear any weight. He has minimal pain when he is still, severe pain when he tries to move or bear weight. He presents by ambulance. The patient denies any blood thinner use. He has been in baseline health. There has been no cough or cold or congestion. He did not strike his head or injure his neck, back, chest or abdomen. Only the left hip hurts. REVIEW OF SYSTEMS: See HPI for pertinent positives and negatives. A total of ten systems were reviewed and were otherwise negative. PMHx/PSHx: See Below SOCIAL HISTORY: See Below. PHYSICAL EXAM: GENERAL: Patient is in no acute distress. HEENT: No acute trauma, normocephalic atraumatic, mucous membranes moist, no C- spine tenderness on exam, no nasal congestion, no scleral icterus. NECK: No stridor, no adenopathy, no meningismus, trachea is midline. LUNGS: Clear to auscultation bilaterally, no wheeze, no rhonchi, breath sounds equal. HEART: Without murmurs gallops or rubs, regular rate and rhythm. ABDOMEN: Soft, nontender, bowel sounds positive, no hernias, no peritonitis. EXTREMITIES: There is no edema. The patient does have some slight external rotation and slight shortening of the left lower extremity in comparison to the right. He has a strong distal left dorsalis pedis pulse. He has normal sensation in all toes and can move his toes normally on the left. Patient has minimal pain with subtle movement of the left hip, minimal pain with palpation of the left hip but severe pain when he tries to ambulate. The left knee is nontender, the left ankle and foot are nontender. NEUROLOGIC: Oriented x 3, no acute motor or sensory deficits, no focal weakness. SKIN: No rash, no jaundice, no diaphoresis. DIFFERENTIAL DIAGNOSIS: Muscular strain, fracture, dislocation, DVT, joint effusion, infection, soft tissue injury, vascular compromise, as well as other pathologies. EMERGENCY DEPARTMENT COURSE/PROCEDURES: ECG: Indication was fall and hip fracture. The ECG shows a normal sinus rhythm with a rate of 62. There is no ST elevation, no PVCs. The QTc is 420. Continuous Cardiac Monitoring: An order was placed for continuous cardiac monitoring. The monitor shows a rate of 65 with normal sinus rhythm. MEDICAL DECISION MAKING: There is no leukocytosis or concerning anemia. There is a normal platelet count. There is no coagulopathy. No significant electrolyte abnormality or kidney failure. Covid testing is negative. Chest film does not show pneumonia or CHF. Pelvis and left hip films do show a left hip fracture, no pelvic fracture. On exam, there was no evidence for distal left lower extremity neurovascular compromise. I could not find evidence for injury anywhere except his left hip. The patient received IV morphine for pain, he was given IV lactated Ringer's for hydration. He was given IV Zofran for nausea. I spoke to the patient about his findings. I did consult orthopedics. The patient is going to require hospitalization and orthopedic intervention. The on-call hospitalist was consulted. Past Med/Surg History Medical History Aortic root dilation GERD (gastroesophageal reflux disease) History of thyroid cancer Hyperlipidemia Hypertension SBO (small bowel obstruction) Surgical History H/O colonoscopy "09/16/2016 adenomatous & hyperplastic polyps, divericulosis " H/O hernia repair H/O thyroidectomy H/O umbilical her[place] repair [place] [facility] H/O ventral hernia repair "2013- repair of recurrent ventral hernia and repair of umbilical; [facility]" History of surgical removal of ganglion cyst S/P laparoscopic cholecystectomy Family History Other No pertinent family history Social History Smoking Status: Former smoker Tobacco Type: Cigarettes Do You Dip or Chew Tobacco: No; Hx Alcohol Use: Yes (quit last year) Hx Substance Use: Yes Prescribed Medications: Marijuana Last Used Substance: Days (ago) Visual Impairment: No Limitations Hearing Ability: Normal marital status: Current Living Situation: Alone current occupational status: retired current occupation: works on his farm Feels Safe at Home: Yes Allergies Allergies Allergy/AdvReac Type Severity Reaction Status Date / Time lisinopril AdvReac Intermediate Cough Verified 11/08/20 20:01 Home Meds Home Medications Medication Instructions Recorded Confirmed ascorbic acid (vitamin C) 500 mg PO QAM 02/16/19 11/08/20 aspirin 81 mg PO QAM 02/16/19 11/08/20 glucosamine-chondroitin [Osteo 1 tab PO BID 02/16/19 11/08/20 Bi-Flex] levothyroxine See Rx Instructions .ROUTE .COMPLEX 02/16/19 11/08/20 losartan-hydrochlorothiazide 1 tab PO QAM 02/16/19 11/08/20 multivitamin 1 tab PO QAM 02/16/19 11/08/20 pantoprazole 40 mg PO QAM 02/16/19 11/08/20 tamsulosin 0.4 mg PO BID 02/16/19 11/08/20 tramadol 50 mg PO Q6H PRN 02/16/19 11/08/20 calcium carbonate 300 mg PO Q2D 11/08/20 11/08/20 ezetimibe 10 mg PO QAM 11/08/20 11/08/20 Results & Data (ED) Vital Signs Vital Signs - 24 hr 11/08/20 18:06 11/08/20 18:30 11/08/20 19:00 Temperature 36.9 C Temperature Source Oral Pulse Rate 64 61 82 Pulse Rate from SpO2 Sensor 62 Respiratory Rate 19 20 19 Blood Pressure 146/87 H 132/72 153/78 H Blood Pressure Mean 106 76 115 Pulse Oximetry 98 96 Oxygen Delivery Method Room Air Sepsis Recent Fever Within 48 Hours No Sepsis New/Unexplained Change in Mental Status No Sepsis Action Taken by Nursing No Action Required 11/08/20 19:01 11/08/20 19:30 11/08/20 20:00 Temperature Temperature Source Pulse Rate 80 62 Pulse Rate from SpO2 Sensor 63 Respiratory Rate 22 16 24 Blood Pressure Blood Pressure Mean Pulse Oximetry 97 Oxygen Delivery Method Sepsis Recent Fever Within 48 Hours Sepsis New/Unexplained Change in Mental Status Sepsis Action Taken by Nursing 11/08/20 20:23 11/08/20 20:30 Temperature Temperature Source Pulse Rate 64 63 Pulse Rate from SpO2 Sensor Respiratory Rate 22 14 Blood Pressure 122/69 Blood Pressure Mean 90 Pulse Oximetry Oxygen Delivery Method Sepsis Recent Fever Within 48 Hours Sepsis New/Unexplained Change in Mental Status Sepsis Action Taken by Prison Medications Current Medication List: was personally reviewed by me Laboratory Data Attestation: I reviewed the patient's lab results. Result diagrams: 11/08/20 20:16 11/08/20 20:16 Lab Results 11/08/20 11/08/20 11/08/20 Range/Units 20:16 20:16 20:16 WBC 10.60 (4.8-10.8) K/uL RBC 4.65 L (4.7-6.1) M/uL Hgb 14.7 (14.0-18.0) g/dL Hct 41.6 L (42-52) % MCV 89.5 (80-100) fL MCH 31.6 (25-34) pg MCHC 35.3 (32-36) g/dL RDW Std Deviation 39.5 (36.4-46.3) fL RDW Coeff of Rory 12.2 (11.5-14.5) % Plt Count 215 (130-400) K/uL MPV 9.1 (7.4-10.4) fL Immature Gran % (Auto) 0.4 % Neut % (Auto) 82.5 % Lymph % (Auto) 8.4 % Trigg % (Auto) 6.7 % Eos % (Auto) 1.8 % Baso % (Auto) 0.2 % Neut # (Auto) 8.75 H (1.4-6.5) K/uL Lymph # (Auto) 0.89 L (1.2-3.4) K/uL Trigg # (Auto) 0.71 H (0.11-0.59) K/uL Eos # (Auto) 0.19 (0-0.5) K/uL Baso # (Auto) 0.02 (0-0.2) K/uL Immature Gran # (Auto) 0.04 H (0.00-0.02) K/uL PT 10.6 (9.0-12.0) Seconds INR 1.0 (0.9-1.1) APTT 24.4 (21.0-31.0) Seconds PTT Ratio 0.9 Sodium (136-145) mmol/L Potassium (3.5-5.1) mmol/L Chloride (98-107) mmol/L Carbon Dioxide (21-32) mmol/L Anion Gap (3-11) BUN (7-18) mg/dl Creatinine (0.6-1.4) mg/dl Est Cr Clr Drug Dosing ml/min Est GFR ( Amer) Est GFR (Non-Af Amer) BUN/Creatinine Ratio (10-20) Glucose (70-99) mg/dl Calcium (8.5-10.1) mg/dl COVID-19 Eval Order SARS-CoV-2, RNA, NAAT (NEGATIVE) Blood Type A Positive Antibody Screen NEGATIVE 11/08/20 11/08/20 11/08/20 Range/Units 20:16 20:32 20:32 WBC (4.8-10.8) K/uL RBC (4.7-6.1) M/uL Hgb (14.0-18.0) g/dL Hct (42-52) % MCV (80-100) fL MCH (25-34) pg MCHC (32-36) g/dL RDW Std Deviation (36.4-46.3) fL RDW Coeff of Rory (11.5-14.5) % Plt Count (130-400) K/uL MPV (7.4-10.4) fL Immature Gran % (Auto) % Neut % (Auto) % Lymph % (Auto) % Trigg % (Auto) % Eos % (Auto) % Baso % (Auto) % Neut # (Auto) (1.4-6.5) K/uL Lymph # (Auto) (1.2-3.4) K/uL Trigg # (Auto) (0.11-0.59) K/uL Eos # (Auto) (0-0.5) K/uL Baso # (Auto) (0-0.2) K/uL Immature Gran # (Auto) (0.00-0.02) K/uL PT (9.0-12.0) Seconds INR (0.9-1.1) APTT (21.0-31.0) Seconds PTT Ratio Sodium 138 (136-145) mmol/L Potassium 3.5 (3.5-5.1) mmol/L Chloride 104 (98-107) mmol/L Carbon Dioxide 30 (21-32) mmol/L Anion Gap 4.0 (3-11) BUN 13 (7-18) mg/dl Creatinine 1.03 (0.6-1.4) mg/dl Est Cr Clr Drug Dosing 84.4 ml/min Est GFR ( Amer) 84.3 Est GFR (Non-Af Amer) 72.7 BUN/Creatinine Ratio 12.9 (10-20) Glucose 110 H (70-99) mg/dl Calcium 8.8 (8.5-10.1) mg/dl COVID-19 Eval Order Covid19 [facility] SARS-CoV-2, RNA, NAAT NEGATIVE (NEGATIVE) Blood Type Antibody Screen Administered Medications Lactated Ringer's (Lr) 1,000 mls @ 150 mls/hr IV .[id number] BELIA Stop: 12/08/20 19:44 Last Admin: 11/08/20 21:23 Dose: 150 mls/hr Documented by: [id number] Morphine Sulfate (Morphine Sulfate 2 Mg/Ml Carp) 4 mg IV Q30M PRN PRN Reason: Moderate Pain (Rating 3,4,5,6) Stop: 11/22/20 19:37 Last Admin: 11/08/20 21:09 Dose: 4 mg Documented by: [id number] Admin: 11/08/20 20:24 Dose: 4 mg Documented by: [id number] Discontinued Medications Hydromorphone HCl (Hydromorphone Inj 1 Mg/Ml Syringe) 1 mg IV NOW STA Stop: 11/08/20 22:14 Last Admin: 11/08/20 22:28 Dose: 1 mg Documented by: [id number] Ondansetron HCl (Ondansetron Inj 2 Mg/Ml 2 Ml Vial) 4 mg IV NOW STA Stop: 11/08/20 19:39 Last Admin: 11/08/20 20:24 Dose: 4 mg Documented by: [id number] Imaging Data Radiologist's Impression: XR hip LT 2V w pelvis CLINICAL HISTORY: Left hip pain status post trauma COMPARISON: None. DISCUSSION: The study is limited from a technical standpoint. There is a suspected left bases cervical hip fracture. The provided crosstable lateral view is nondiagnostic. IMPRESSION: 1. Technically limited study 2. Suspected acute basicervical left hip fracture. Discharge Plan Visit Data Chief Complaint: Hip Pain ED Provider: Adrian Nguyễn Discharge Problem: Closed fracture of left hip, Fall Patient Disposition: Home - Self-Care Condition: Good Forms Stand Alone Forms: [facility], Virtual Emergency Department, [facility] ortant Visit Information Prescriptions Prescriptions: No Action multivitamin Tablet 1 tab PO QAM RF: 0 levothyroxine 175 mcg tablet See Rx Instructions .ROUTE .COMPLEX RF: 0 aspirin 81 mg Tablet,Delayed Release (Dr/Ec) 81 mg PO QAM RF: 0 tramadol 50 mg tablet 50 mg PO Q6H PRN (Reason: Pain) RF: 0 losartan-hydrochlorothiazide 100-25 mg tablet 1 tab PO QAM RF: 0 ascorbic acid (vitamin C) 500 mg Tablet 500 mg PO QAM RF: 0 tamsulosin 0.4 mg capsule 0.4 mg PO BID RF: 0 pantoprazole 40 mg tablet,delayed release (DR/EC) 40 mg PO QAM RF: 0 glucosamine-chondroitin [Osteo Bi-Flex] 250-200 mg Tablet 1 tab PO BID RF: 0 calcium carbonate 600 mg calcium (1,500 mg) Tablet 300 mg PO Q2D RF: 0 ezetimibe 10 mg tablet 10 mg PO QAM RF: 0 Referrals Referrals: Boyd Kay MD [Primary Care Provider] - Discharge Problem: Closed fracture of left hip Qualifiers: Encounter type: initial encounter Qualified Code(s): S72.002A - Fracture of unspecified part of neck of left femur, initial encounter for closed fracture Fall Qualifiers: Encounter type: initial encounter Qualified Code(s): W19.XXXA - Unspecified fall, initial encounter
[2020-11-08] MEDS ORDERED: ONDANSETRON INJ 2 MG/ML 2 ML VIAL IV STA (19:38)
--- NOTE | 2020-11-08 19:40 | XRay Report ---
XR hip LT 2V w pelvis CLINICAL HISTORY: Left hip pain status post trauma COMPARISON: None. DISCUSSION: The study is limited from a technical standpoint. There is a suspected left bases cervica l hip fracture. The provided crosstable lateral view is nondiagnostic. IMPRESSION: 1. Technically limited study 2. Suspected acute basicervical left hip fracture. ACT 112: Negative or not required by law. Electronically signed by: Robin Busch M.D. 11/08/2020 7:38 PM
[2020-11-08] MEDS ORDERED: LACTATED RINGER'S 1,000 ML IV SCH (19:45)
--- NOTE | 2020-11-08 20:09 | Progress Note ---
Date of Service November 08, 2020 Subjective Patient seen and examined with Yousif Aragon. For further details refer to his dictation. He and I evaluated this patient and I am agreeing with the plan. Patient slipped and fell on the ice injuring his left hip. He has a history of thyroid cancer left knee problems stomach ulcers. His prior surgical history is noted on the medical record. He is allergic to lisinopril. His medications are also noted and reviewed. The left leg is shortened and externally rotated. He has 5 out of 5 ankle and toe plantarflexion and dorsiflexion strength. He has a 1+ dorsalis pedis pulse. Labs are currently pending. Radiographs will be repeated but the current radio graphs demonstrate what appears to be a femoral neck versus basicervical fracture which is displaced. There is no arthritis and no bone or soft tissue lesion. The report is noted. Findings are discussed with patient. He has a hip fracture. Surgical treatment is recommended. He will be admitted to the hospital by medicine. The plan will be for a bipolar hemiarthroplasty. Further x-rays will be evaluated. He has no issues with bleeding blood clots metal allergy or MRSA. He is educated about the treatment options risks benefits and rehabilitation. An informed consent is obtained. N.p.o. after midnight. Covid test. Results & Data ([facility]) Vital Signs (Past 12 Hours) Vital Signs Temp Pulse Resp BP Pulse Ox 11/08/20 18:30 61 20 132/72 96 11/08/20 18:06 36.9 C 64 19 146/87 H 98
--- NOTE | 2020-11-08 20:13 | Orthopedic Consultation ---
Date of Consultation November 08, 2020 Assessment & Plan (1) Hip fracture, left: Patient will require surgical fixation. Informed written consent was obtained today by Dr. Salinas for hemiarthroplasty. Anticipate taking him to the OR tomorrow morning. N.p.o. after midnight. Patient will be admitted to the hospitalist service for optimizing his care. History of Present Illness Reason for Consultation: Left hip fracture Requesting Physician: Dr. Nguyễn Attending Physician: Dr. Salinas History of Present Illness This 70-year-old white male presented to the ED today after falling at home. He was walking from his barn to his house and slipped on the ice. He fell onto his left side. There was immediate onset of pain. He was unable to bear weight on the left leg. He did arrive to the ED by ambulance. No prior history of significant hip injury. X-rays here show a femoral neck fracture. He denies any other areas of discomfort. No other complaints. No numbness or tingling. Allergies Allergy/AdvReac Type Severity Reaction Status Date / Time lisinopril AdvReac Intermediate Cough Verified 11/08/20 20:01 Home Medications Medication Instructions Recorded Confirmed Type ascorbic acid (vitamin C) 500 mg PO QAM 02/16/19 07/02/20 History aspirin 81 mg PO QAM 02/16/19 07/02/20 History glucosamine-chondroitin [Osteo 2 tabs PO QAM 02/16/19 07/02/20 History Bi-Flex] levothyroxine 175 mcg PO QAM 02/16/19 07/02/20 History losartan-hydrochlorothiazide 1 tab PO QAM 02/16/19 07/02/20 History multivitamin 1 tab PO QAM 02/16/19 07/02/20 History pantoprazole 40 mg PO QAM 02/16/19 07/02/20 History tamsulosin 0.4 mg PO BID 02/16/19 07/02/20 History tramadol 50 - 100 mg PO DIRECTED PRN 02/16/19 07/02/20 History calcium carbonate 300 mg PO Q2D 11/08/20 11/08/20 History ezetimibe 10 mg PO QAM 11/08/20 11/08/20 History Patient History Medical History Aortic root dilation GERD (gastroesophageal reflux disease) History of thyroid cancer Hyperlipidemia Hypertension SBO (small bowel obstruction) Surgical History H/O colonoscopy "09/16/2016 adenomatous & hyperplastic polyps, divericulosis " H/O hernia repair H/O thyroidectomy H/O umbilical hernia repair "2010 Dr. Christian [facility] [place]" H/O ventral hernia repair "2013- repair of recurrent ventral hernia and repair of umbilical; [facility]" History of surgical removal of ganglion cyst S/P laparoscopic cholecystectomy Family History Other No pertinent family history Social History (Updated 11/08/20 @ 20:07 by Yousif Aragon PA-C) Smoking Status: Former smoker Tobacco Type: Cigarettes Do You Dip or Chew Tobacco: No; Hx Alcohol Use: Yes (quit last year) Hx Substance Use: Yes Prescribed Medications: Marijuana Last Used Substance: Days (ago) Visual Impairment: No Limitations Hearing Ability: Normal marital status: Current Living Situation: Alone current occupational status: retired current occupation: works on his farm Feels Safe at Home: Yes Review of Systems Review of Systems: All systems reviewed & are unremarkable except as noted in HPI & below A total of 10 systems are reviewed. Physical Exam Physical Exam: General: Well-developed, well-nourished, elderly white male, in obvious discomfort. No acute distress. Laying on the bed. Alert and oriented. Skin: Warm and dry with good turgor. No rashes or lesions. No ecchymosis or erythema. The patient is not diaphoretic. No abrasions. HEENT: Normocephalic, atraumatic. Eyes PERRLA EOMI oropharynx and nares exams deferred due to Covid precautions. Heart: Heart RRR. No MGR. Peripheral pulses are 2+. Lungs: Lungs are clear to auscultation. No crackles rhonchi or wheezing. Good air movement. The patient is able to take a deep breath. Abdomen: Abdomen was inspected, auscultated, and palpated. Bowel sounds present x 4. Soft, nontender to palpation. No hepato-splenomegaly. No masses noted. No rebound. Musculoskeletal: Left leg is shortened and externally rotated. He has focal discomfort with palpation over the anterior flexion crease in the groin. No pain with palpation over his buttock or midshaft thigh. Intact motor function of his toes, ankle, and knee. Hip range of motion was not attempted secondary to pain. Neurologic: Gross sensation is intact across both lower extremities by soft touch. Results & Data ([facility]) Vital Signs (Past 12 Hours) Vital Signs Temp Pulse Resp BP Pulse Ox 11/08/20 18:30 61 20 132/72 96 11/08/20 18:06 36.9 C 64 19 146/87 H 98 Diagnostic Findings Radiographic imaging obtained today of the pelvis and left hip show a basicervical neck fracture of the left femur. Films were read by radiology.
[2020-11-08] MEDS: MoRPHine SULFATE 2 MG/ML CARP IV PRN ×2 (20:24→21:09)
[2020-11-08 20:29] LABS: Basophils # (auto) 0.02 K/uL (0-0.2); Basophils % (auto) 0.2 %; Eosinophils # (auto) 0.19 K/uL (0-0.5); Eosinophils % (auto) 1.8 %; Hematocrit (blood only) 41.6 % (42-52); Hemoglobin 14.7 g/dL (14.0-18.0); Immature Granulocytes # (auto) 0.04 K/uL (0.00-0.02); Immature Granulocytes % (auto) 0.4 %; Lymphocytes # (auto) 0.89 K/uL (1.2-3.4); Lymphocytes % (auto) 8.4 %; Mean Corpuscular Hemoglobin 31.6 pg (25-34); Mean Corpuscular Hgb Conc 35.3 g/dL (32-36); Mean Corpuscular Volume 89.5 fL (80-100); Mean Platelet Volume 9.1 fL (7.4-10.4); Monocytes # (auto) 0.71 K/uL (0.11-0.59); Monocytes % (auto) 6.7 %; Neutrophils # (auto) 8.75 K/uL (1.4-6.5); Neutrophils % (auto) 82.5 %; Platelet Count 215 K/uL (130-400); RDW Coefficient of Variation 12.2 % (11.5-14.5); RDW Standard Deviation 39.5 fL (36.4-46.3); Red Blood Count 4.65 M/uL (4.7-6.1)
[2020-11-08 20:46] LABS: BUN Creatinine Ratio 12.9 (10-20); Calcium 8.8 mg/dl (8.5-10.1); Creatinine Clr Calc Pharmacy 84.4 ml/min; Est GFR (African American) 84.3; Est GFR (Non-African American) 72.7; Potassium 3.5 mmol/L (3.5-5.1)
[2020-11-08 20:48] LABS: Partial Thromboplastin Ratio 0.9; Partial Thromboplastin Time 24.4 Seconds (21.0-31.0); Prothrombin Time 10.6 Seconds (9.0-12.0)
[2020-11-08] MEDS ORDERED: HYDROmorphone INJ 1 MG/ML SYRINGE IV STA (22:13)
--- NOTE | 2020-11-08 22:41 | History and Physical Report ---
DATE OF ADMISSION: 11/08/2020 CHIEF COMPLAINT: Status post mechanical fall and left hip fracture. HISTORY OF PRESENT ILLNESS: A 70-year-old male with past medical history significant for hyperlipidemia, history of thyroid cancer, status post partial thyroidectomy, postoperative hypothyroidism, history of ascending aortic root dilatation, hypertension, reflux esophagitis, obstructive uropathy, BPH, Peyronie's disease, history of lumbar disc herniation, history of left knee arthritis, lumbar pars defect, splenic cyst, insomnia, history of small-bowel obstruction, status post fall. The patient was walking from his barn and slipped on ice and fell on his left side and could not get up. Called his grandson and had difficulty getting up and putting weight on his left leg and was brought in here and imaging studies show left hip fracture. Seen by ortho. Plan for surgery in the a.m. Currently resting comfortably. Says the pain medication is not helping him much and requested for a stronger medication. Denies any chest pain. No shortness of breath, no cough, no fever, no chills, no headache, no dizziness, no blurred vision, no earache, no runny nose, no sore throat, no nausea, no vomiting, no abdominal pain, no diarrhea or constipation, no blood in stool or black stools. Normal bladder movements. The patient says otherwise he is active and can walk and climb steps without any issues. ALLERGIES: LISINOPRIL. PAST MEDICAL HISTORY: As mentioned above. PAST SURGICAL HISTORY: Colonoscopy, repair of recurrent ventral hernia and repair of umbilical hernia, left knee arthroscopy, laparoscopic cholecystectomy, thyroidectomy with limited neck dissection, removal of wrist ganglion on the left wrist, umbilical hernia repair. MEDICATIONS: The patient is on ascorbic acid 500 mg p.o. a.m., aspirin 81 mg p.o. a.m., calcium carbonate 300 mg p.o. q. 2 days, ezetimibe 10 mg p.o. a.m., glucosamine chondroitin 1 tablet p.o. b.i.d., levothyroxine as directed, losartan/hydrochlorothiazide 1 tablet p.o. a.m., multivitamin 1 tablet a.m., Protonix 40 mg p.o. a.m., Flomax 0.4 mg p.o. b.i.d., tramadol 50 mg p.o. q. 6 hours p.r.n. FAMILY HISTORY: Significant for mother has arrhythmia, father has IA. SOCIAL HISTORY: . Former smoker, quit in 1990. Smoked 1 pack a day. Occasionally snuffs tobacco. No alcohol. Smokes marijuana. REVIEW OF SYSTEMS: As per HPI. Rest of the review of systems negative. PHYSICAL EXAMINATION: GENERAL: The patient is of moderate build, not in acute distress. VITAL SIGNS: Temperature 36.9, pulse 63, respiratory rate 14, blood pressure 122/69, oxygen 97% on room air. HEENT: Pupils equal, round, and reactive to light. Oral mucosa moist. NECK: No neck masses seen. CARDIOVASCULAR: S1, S2 heard, regular rate and rhythm, no murmur, no gallop. RESPIRATORY SYSTEM: Normal AP diameter. No accessory muscle use. No wheezing, no crackles. ABDOMEN: Soft, bowel sounds present, nontender. No distention. CENTRAL NERVOUS SYSTEM: Cranial nerves II-XII grossly intact, nonfocal. EXTREMITIES: Left lower extremity is short and externally rotated. No erythema seen. No swelling seen. LABORATORY DATA: WBC 16.6, hemoglobin 14.7, hematocrit 41.6, platelets 215. PT 10.6, INR 1, APTT 24.4. Sodium 138, potassium 3.5, chloride 104, bicarbonate 30, BUN 13, creatinine 0.103, serum glucose 110, calcium 8.8. SARS-CoV-2 RNA pending. IMAGING DATA: Hip and pelvis x-ray shows suspected acute basicervical left hip fracture. Chest x-ray, no acute findings. EKG: Normal sinus rhythm at a rate of 62, nonspecific intraventricular conduction delay, no significant change was found. ASSESSMENT AND PLAN: This is a 70-year-old male who presents with mechanical fall and left hip fracture. 1. Mechanical fall, left hip fracture: Pain control with IV Dilaudid p.r.n., IV fluids, n.p.o., IV antiemetics p.r.n. Seen by ortho. Plan for surgery in the a.m. The patient is should be at acceptable risk to proceed with surgery. Postop management as per orthopedics. 2. History of hypertension: Hold losartan and hydrochlorothiazide, to restart after surgery. We will place on IV hydralazine p.r.n. for now and monitor the blood pressure. 3. Hypothyroidism: Continue Synthroid. 4. Hyperlipidemia: Continue Zetia. 5. Benign prostatic hypertrophy and obstructive uropathy: Continue Flomax. 6. Gastroesophageal reflux disease: Continue Protonix. 7. Deep venous thrombosis prophylaxis: As per orthopedics post procedure. DISPOSITION: Admit to medical floor. PT and OT prior to discharge. Social service to help with discharge planning. Level 1 full code. MTDD
[2020-11-08] MEDS ORDERED: traMADol HCL 50 MG TABLET PO PRN (23:35)
[2020-11-08] MEDS ORDERED: hydrALAZINE HCL 20 MG/ML VIAL IV PRN (23:35)
[2020-11-08] MEDS ORDERED: traMADol HCL 50 MG TABLET ONE (23:55)
[2020-11-09] MEDS: HYDROmorphone INJ 0.5 MG/0.5 ML SYR IV PRN ×3 (00:07→18:27)
[2020-11-09] MEDS: D5W AND NSS 1,000 ML IV SCH ×3 (00:42→19:12)
[2020-11-09 05:53] LABS: Basophils # (auto) 0.02 K/uL (0-0.2); Basophils % (auto) 0.3 %; Eosinophils # (auto) 0.15 K/uL (0-0.5); Hematocrit (blood only) 38.3 % (42-52); Hemoglobin 13.4 g/dL (14.0-18.0); Immature Granulocytes # (auto) 0.01 K/uL (0.00-0.02); Immature Granulocytes % (auto) 0.1 %; Lymphocytes # (auto) 1.21 K/uL (1.2-3.4); Lymphocytes % (auto) 15.9 %; Mean Corpuscular Volume 88.7 fL (80-100); Monocytes % (auto) 11.8 %; Neutrophils # (auto) 5.31 K/uL (1.4-6.5); Neutrophils % (auto) 69.9 %; Platelet Count 196 K/uL (130-400); RDW Coefficient of Variation 12.2 % (11.5-14.5); RDW Standard Deviation 39.2 fL (36.4-46.3); Red Blood Count 4.32 M/uL (4.7-6.1)
[2020-11-09 05:53] LABS: Appearance Urine Clear (Clear); Bilirubin Urine Negative (Negative); Blood Urine Negative (Negative); Color Urine Yellow; Glucose Urine UA Negative (Negative); Ketones Urine Negative (Negative); Leukocyte Esterase Urine Negative (Negative); Nitrite Urine Negative (Negative); Protein Urine Negative (Negative); Specific Gravity Urine 1.017 (1.000-1.030); Urobilinogen Urine Negative (Negative); pH Urine 5.5 (4.5-7.5)
[2020-11-09 06:14] LABS: BUN Creatinine Ratio 14.1 (10-20); Calcium 8.2 mg/dl (8.5-10.1); Creatinine Clr Calc Pharmacy 107.6 ml/min; Est GFR (African American) 103.6; Est GFR (Non-African American) 89.4; Magnesium 2.1 mg/dl (1.8-2.4); Potassium 3.7 mmol/L (3.5-5.1)
[2020-11-09] MEDS ORDERED: LEVOTHYROXINE SODIUM 175 MCG TABLET PO SCH (06:30)
--- NOTE | 2020-11-09 07:24 | XRay Report ---
XR chest 1V portable CLINICAL HISTORY: Preoperative chest. Left hip fracture COMPARISON STUDY: 03/23/2018 FINDINGS: The heart is enlarged. There is aortic tortuosity/ectasia. There is no failure. There is no focal pulmonary consolidation. No pleural effusions are visualized.[ IMPRESSION: No active disease in the chest. ACT 112: Negative or not required by law. Electronically signed by: Robin Busch M.D. 11/09/2020 7:23 AM
--- NOTE | 2020-11-09 07:24 | XRay Report ---
XR hip 1V LT w pelvis CLINICAL HISTORY: Pain status post trauma COMPARISON: 11/08/2020 DISCUSSION: There is an acute oblique left femoral neck fracture. There is no dislocation. IMPRESSION: Acute left femoral neck fracture. ACT 112: Negative or not required by law. Electronically signed by: Robin Busch M.D. 11/09/2020 7:22 AM
[2020-11-09] MEDS ORDERED: ceFAZolin 2000MG 2,000 MG/15 ML SYR IV ONE (08:22)
--- NOTE | 2020-11-09 08:31 | Progress Note ---
Date of Service November 09, 2020 Assessment & Plan (1) Closed fracture of left hip: Patient is stable for surgery. Repeat x-rays demonstrate a low transcervical femoral neck fracture. There is not an intertrochanteric fracture or basicervical fracture present. I think given the patient's injury and bone quality a uncemented hip hemiarthroplasty is appropriate. I reviewed with him total hip precautions. He has been n.p.o. Mechanical devices for DVT prophylaxis for now. Plan to proceed with surgery. He is stable at this point. Encounter type: initial encounter Qualified Code(s): S72.002A - Fracture of unspecified part of neck of left femur, initial encounter for closed fracture Present on Admission?: Yes Admission and Anticipated Discharge Date Admission Date: November 08, 2020 Subjective Patient is resting comfortably in bed. Pain reasonably well-controlled but not completely. No additional problems or questions are noted. Physical Exam Physical Exam: He has 5 out of 5 ankle and toe plantarflexion dorsiflexion and eversion strength. Sensation intact. Dorsalis pedis is 1+. The leg is shortened and externally rotated. Results & Data ([facility]) Vital Signs (Past 12 Hours) Vital Signs Temp Pulse Pulse Resp BP Pulse Ox 11/08/20 23:53 37.2 C 69 16 119/71 95 11/08/20 20:30 63 14 Laboratory Results 11/09/20 11/09/20 11/09/20 Range/Units 05:37 05:37 05:25 WBC 7.60 (4.8-10.8) K/uL RBC 4.32 L (4.7-6.1) M/uL Hgb 13.4 L (14.0-18.0) g/dL Hct 38.3 L (42-52) % MCV 88.7 (80-100) fL MCH 31.0 (25-34) pg MCHC 35.0 (32-36) g/dL RDW Std Deviation 39.2 (36.4-46.3) fL RDW Coeff of Rory 12.2 (11.5-14.5) % Plt Count 196 (130-400) K/uL MPV 9.0 (7.4-10.4) fL Immature Gran % (Auto) 0.1 % Neut % (Auto) 69.9 % Lymph % (Auto) 15.9 % Mcleod % (Auto) 11.8 % Eos % (Auto) 2.0 % Baso % (Auto) 0.3 % Neut # (Auto) 5.31 (1.4-6.5) K/uL Lymph # (Auto) 1.21 (1.2-3.4) K/uL Mcleod # (Auto) 0.90 H (0.11-0.59) K/uL Eos # (Auto) 0.15 (0-0.5) K/uL Baso # (Auto) 0.02 (0-0.2) K/uL Immature Gran # (Auto) 0.01 (0.00-0.02) K/uL PT (9.0-12.0) Seconds INR (0.9-1.1) APTT (21.0-31.0) Seconds PTT Ratio Sodium 138 (136-145) mmol/L Potassium 3.7 (3.5-5.1) mmol/L Chloride 106 (98-107) mmol/L Carbon Dioxide 28 (21-32) mmol/L Anion Gap 4.0 (3-11) BUN 11 (7-18) mg/dl Creatinine 0.81 (0.6-1.4) mg/dl Est Cr Clr Drug Dosing 107.6 ml/min Est GFR ( Amer) 103.6 Est GFR (Non-Af Amer) 89.4 BUN/Creatinine Ratio 14.1 (10-20) Glucose 116 H (70-99) mg/dl Calcium 8.2 L (8.5-10.1) mg/dl Magnesium 2.1 (1.8-2.4) mg/dl Urine Color Yellow Urine Appearance Clear (Clear) Urine pH 5.5 (4.5-7.5) Ur Specific Ketchum 1.017 (1.000-1.030) Urine Protein Negative (Negative) Urine Glucose (UA) Negative (Negative) Urine Ketones Negative (Negative) Urine Blood Negative (Negative) Urine Nitrite Negative (Negative) Urine Bilirubin Negative (Negative) Urine Urobilinogen Negative (Negative) Ur Leukocyte Esterase Negative (Negative) COVID-19 Eval Order SARS-CoV-2, RNA, NAAT (NEGATIVE) Blood Type Antibody Screen 11/08/20 11/08/20 11/08/20 Range/Units 20:32 20:32 20:16 WBC (4.8-10.8) K/uL RBC (4.7-6.1) M/uL Hgb (14.0-18.0) g/dL Hct (42-52) % MCV (80-100) fL MCH (25-34) pg MCHC (32-36) g/dL RDW Std Deviation (36.4-46.3) fL RDW Coeff of Rory (11.5-14.5) % Plt Count (130-400) K/uL MPV (7.4-10.4) fL Immature Gran % (Auto) % Neut % (Auto) % Lymph % (Auto) % Mcleod % (Auto) % Eos % (Auto) % Baso % (Auto) % Neut # (Auto) (1.4-6.5) K/uL Lymph # (Auto) (1.2-3.4) K/uL Mcleod # (Auto) (0.11-0.59) K/uL Eos # (Auto) (0-0.5) K/uL Baso # (Auto) (0-0.2) K/uL Immature Gran # (Auto) (0.00-0.02) K/uL PT (9.0-12.0) Seconds INR (0.9-1.1) APTT (21.0-31.0) Seconds PTT Ratio Sodium 138 (136-145) mmol/L Potassium 3.5 (3.5-5.1) mmol/L Chloride 104 (98-107) mmol/L Carbon Dioxide 30 (21-32) mmol/L Anion Gap 4.0 (3-11) BUN 13 (7-18) mg/dl Creatinine 1.03 (0.6-1.4) mg/dl Est Cr Clr Drug Dosing 84.4 ml/min Est GFR ( Amer) 84.3 Est GFR (Non-Af Amer) 72.7 BUN/Creatinine Ratio 12.9 (10-20) Glucose 110 H (70-99) mg/dl Calcium 8.8 (8.5-10.1) mg/dl Magnesium (1.8-2.4) mg/dl Urine Color Urine Appearance (Clear) Urine pH (4.5-7.5) Ur Specific Ketchum (1.000-1.030) Urine Protein (Negative) Urine Glucose (UA) (Negative) Urine Ketones (Negative) Urine Blood (Negative) Urine Nitrite (Negative) Urine Bilirubin (Negative) Urine Urobilinogen (Negative) Ur Leukocyte Esterase (Negative) COVID-19 Eval Order Covid19 IDNow [facility] SARS-CoV-2, RNA, NAAT NEGATIVE (NEGATIVE) Blood Type Antibody Screen 11/08/20 11/08/20 11/08/20 Range/Units 20:16 20:16 20:16 WBC 10.60 (4.8-10.8) K/uL RBC 4.65 L (4.7-6.1) M/uL Hgb 14.7 (14.0-18.0) g/dL Hct 41.6 L (42-52) % MCV 89.5 (80-100) fL MCH 31.6 (25-34) pg MCHC 35.3 (32-36) g/dL RDW Std Deviation 39.5 (36.4-46.3) fL RDW Coeff of Rory 12.2 (11.5-14.5) % Plt Count 215 (130-400) K/uL MPV 9.1 (7.4-10.4) fL Immature Gran % (Auto) 0.4 % Neut % (Auto) 82.5 % Lymph % (Auto) 8.4 % Mcleod % (Auto) 6.7 % Eos % (Auto) 1.8 % Baso % (Auto) 0.2 % Neut # (Auto) 8.75 H (1.4-6.5) K/uL Lymph # (Auto) 0.89 L (1.2-3.4) K/uL Mcleod # (Auto) 0.71 H (0.11-0.59) K/uL Eos # (Auto) 0.19 (0-0.5) K/uL Baso # (Auto) 0.02 (0-0.2) K/uL Immature Gran # (Auto) 0.04 H (0.00-0.02) K/uL PT 10.6 (9.0-12.0) Seconds INR 1.0 (0.9-1.1) APTT 24.4 (21.0-31.0) Seconds PTT Ratio 0.9 Sodium (136-145) mmol/L Potassium (3.5-5.1) mmol/L Chloride (98-107) mmol/L Carbon Dioxide (21-32) mmol/L Anion Gap (3-11) BUN (7-18) mg/dl Creatinine (0.6-1.4) mg/dl Est Cr Clr Drug Dosing ml/min Est GFR ( Amer) Est GFR (Non-Af Amer) BUN/Creatinine Ratio (10-20) Glucose (70-99) mg/dl Calcium (8.5-10.1) mg/dl Magnesium (1.8-2.4) mg/dl Urine Color Urine Appearance (Clear) Urine pH (4.5-7.5) Ur Specific Ketchum (1.000-1.030) Urine Protein (Negative) Urine Glucose (UA) (Negative) Urine Ketones (Negative) Urine Blood (Negative) Urine Nitrite (Negative) Urine Bilirubin (Negative) Urine Urobilinogen (Negative) Ur Leukocyte Esterase (Negative) COVID-19 Eval Order SARS-CoV-2, RNA, NAAT (NEGATIVE) Blood Type A Positive Antibody Screen NEGATIVE
[2020-11-09] MEDS: PANTOprazole 40 MG TAB PO SCH (08:41)
[2020-11-09] MEDS: EZETIMIBE 10 MG TABLET PO SCH (08:41)
[2020-11-09] MEDS: TAMSULOSIN HCL 0.4 MG CAP PO SCH ×2 (08:41→20:48)
[2020-11-09] MEDS ORDERED: NON-FORMULARY MEDICATION (Glucosamine-Chondroitin [Osteo Bi-Flex] 250-200 mg Tablet) PO SCH (09:00)
[2020-11-09] MEDS: ASCORBIC ACID 500 MG TAB PO SCH (11:06)
[2020-11-09] MEDS: CALCIUM 600MG + VIT D 400 IU TAB PO SCH (11:06)
[2020-11-09] MEDS: MULTIVITAMIN TAB PO SCH (11:06)
[2020-11-09] MEDS: ASPIRIN 81 MG ECTAB PO SCH (11:06)
--- NOTE | 2020-11-09 11:23 | Anesthesiology Consultation ---
Date of Service November 09, 2020 Assessment & Plan Chart Review Chart Review: Acceptable Risk for Surgery and Patient NOT seen in Pre Admission Testing Consults Requested none ASA ASA3 Proposed Anesthesia Anesthesia Type: General and Spinal History Surgery Operation Date: 11/09/20 11:00 Proposed Procedures p Bipolar Hip Prosthesis(Left) - Boyd Salinas MD Height/Weight Height: 6 ft 1 in Weight: 107.5 kg Allergies Allergy/AdvReac Type Severity Reaction Status Date / Time lisinopril AdvReac Intermediate Cough Verified 11/08/20 20:01 Medications Home Medications Medication Instructions Recorded Confirmed Last Taken ascorbic acid (vitamin C) 500 mg PO QAM 02/16/19 11/08/20 11/08/20 aspirin 81 mg PO QAM 02/16/19 11/08/20 11/08/20 glucosamine-chondroitin [Osteo 1 tab PO BID 02/16/19 11/08/20 11/08/20 Bi-Flex] AM DOSE levothyroxine See Rx Instructions .ROUTE .COMPLEX 02/16/19 11/08/20 11/08/20 175 MCG losartan-hydrochlorothiazide 1 tab PO QAM 02/16/19 11/08/20 11/08/20 multivitamin 1 tab PO QAM 02/16/19 11/08/20 11/08/20 pantoprazole 40 mg PO QAM 02/16/19 11/08/20 11/08/20 tamsulosin 0.4 mg PO BID 02/16/19 11/08/20 11/08/20 AM DOSE tramadol 50 mg PO Q6H PRN 02/16/19 11/08/20 Unknown calcium carbonate 300 mg PO Q2D 11/08/20 11/08/20 Unknown ezetimibe 10 mg PO QAM 11/08/20 11/08/20 11/08/20 Active Medications Generic Name Dose Route Start Last Admin Trade Name Freq PRN Reason Stop Dose Admin Ascorbic Acid 500 mg 11/09/20 09:00 11/09/20 11:06 Ascorbic Acid 500 Mg Tab PO 12/09/20 08:59 Not Given QAM [facility] Aspirin 81 mg 11/09/20 09:00 11/09/20 11:06 Aspirin 81 Mg Ectab PO 12/09/20 08:59 Not Given QAM [facility] Ezetimibe 10 mg 11/09/20 09:00 11/09/20 08:41 Ezetimibe 10 Mg Tablet PO 12/09/20 08:59 10 mg QAM [facility] Administration Hydromorphone HCl 0.75 mg 11/08/20 23:35 11/09/20 09:39 Hydromorphone Inj 0.5 Mg/0.5 Ml Syr IV 11/22/20 23:34 0.75 mg Q4H PRN Administration Pain Dextrose/Sodium Chloride 1,000 mls @ 125 mls/hr 11/08/20 23:35 11/09/20 09:01 D5w And Nss IV 12/08/20 23:34 125 mls/hr .Q8H BELIA Administration Levothyroxine Sodium 87.5 mcg 11/09/20 06:30 11/09/20 05:41 Levothyroxine Sodium 175 Mcg Tablet PO 12/09/20 06:29 87.5 mcg Sa@0630 [facility] Administration Multivitamins 1 tab 11/09/20 09:00 11/09/20 11:06 Multivitamin Tab PO 12/09/20 08:59 Not Given QAM [facility] Multivitamins/Minerals 0.5 tab 11/09/20 09:00 11/09/20 11:06 Calcium 600mg + Vit D 400 Iu Tab PO 12/09/20 08:59 Not Given Q2D [facility] Pantoprazole Sodium 40 mg 11/09/20 09:00 11/09/20 08:41 Pantoprazole 40 Mg Tab PO 12/09/20 08:59 40 mg QAM [facility] Administration Tamsulosin HCl 0.4 mg 11/09/20 09:00 11/09/20 08:41 Tamsulosin Hcl 0.4 Mg Cap PO 12/09/20 08:59 0.4 mg BID [facility] Administration NPO Date Last Intake of Fluids: 11/09/20 Time Last Intake of Fluids: 05:49 Last Intake of Fluids Comment: small sip with medication Date Last Intake of Solids: 11/08/20 Time Last Intake of Solids: 21:00 Past Medical History Medical History (Updated 11/09/20 @ 11:21 by Pierre Greenberg MD) Aortic root dilation GERD (gastroesophageal reflux disease) History of ASCVD History of thyroid cancer Hyperlipidemia Hypertension SBO (small bowel obstruction) Exercise / Class Metabolic Activity III < 4 Walking/Shop/Light housework Past Family History Family History Other No pertinent family history Past Surgical History Surgical History H/O colonoscopy "09/16/2016 adenomatous & hyperplastic polyps, divericulosis " H/O hernia repair H/O thyroidectomy H/O umbilical hernia repair "2010 Dr. Christian [facility] [place]" H/O ventral hernia repair "2013- repair of recurrent ventral hernia and repair of umbilical; [facility]" History of surgical removal of ganglion cyst S/P laparoscopic cholecystectomy Past Anesthesia History No Hx of Anesthesia Complications and No Family Hx of Anesthesia Complications History of PONV No Hx of PONV and No Hx of Motion Sickness Social History Smoking Status: Former smoker Do You Dip or Chew Tobacco: No Smoking End Date: 11/08/19 Hx Alcohol Use: No Hx Substance Use: Yes substance use type: marijuana Last Used Substance: Days (ago) Last Used Substance Other:: Last night (11/07) Physical Exam Vital Signs Last Vital Signs Temp 36.9 C 11/09/20 08:36 Pulse 66 11/09/20 08:36 Resp 16 11/09/20 08:36 BP 121/70 11/09/20 08:36 Pulse Ox 97 11/09/20 08:36 Testing Laboratory Results 11/09/20 05:37 11/09/20 05:37 PT 10.6 Seconds (9.0-12.0) 11/08/20 20:16 INR 1.0 (0.9-1.1) 11/08/20 20:16 APTT 24.4 Seconds (21.0-31.0) 11/08/20 20:16 Urine Color Yellow 11/09/20 05:25 Urine Appearance Clear (Clear) 11/09/20 05:25 Urine pH 5.5 (4.5-7.5) 11/09/20 05:25 Ur Specific Schriever 1.017 (1.000-1.030) 11/09/20 05:25 Urine Protein Negative (Negative) 11/09/20 05:25 Urine Glucose (UA) Negative (Negative) 11/09/20 05:25 Urine Ketones Negative (Negative) 11/09/20 05:25 Urine Nitrite Negative (Negative) 12/26/20 05:25 Ur Leukocyte Esterase Negative (Negative) 11/09/20 05:25 Blood Type A Positive 11/08/20 20:16 Antibody Screen NEGATIVE 11/08/20 20:16 Electrocardiogram Date: 11/08/20 Findings: + NSR @ (at 62:NS IVCD) Chest X-Ray Date: 11/08/20 Findings: + NAD and + cardiomegaly
[2020-11-09] MEDS ORDERED: fentaNYL citrate 100 MCG/2 ML VIAL ONE ×2 (12:18→12:31)
[2020-11-09] MEDS ORDERED: MIDAZOLAM HCL 1 MG/ML 2ML VIAL ONE (12:18)
[2020-11-09] MEDS ORDERED: PROPOFOL IV EMULSION 10 MG/ML 20 ML VIAL IV ONE ×6 (12:18→14:34)
[2020-11-09] MEDS ORDERED: THROMBIN FOR SOLN 20000 UNIT KIT ONE (12:36)
[2020-11-09] MEDS ORDERED: BACITRACIN INJ 50,000 UNIT VIAL ONE (12:36)
--- NOTE | 2020-11-09 13:32 | Electrocardiogram Report ---
Test Reason : Blood Pressure : / mmHG Vent. Rate : 062 BPM Atrial Rate : 062 BPM P-R Int : 194 ms QRS Dur : 124 ms QT Int : 414 ms P-R-T Axes : 024 -21 010 degrees QTc Int : 420 ms Normal sinus rhythm RSR' or QR pattern in V1 suggests right ventricular conduction delay Borderline ECG When compared with ECG of 23-MAR-2018 03:10, No significant change was found Confirmed by Boone Sanchez ([id number]) on 11/09/2020 1:32:22 PM Referred By: REFERRED SELF Confirmed By:Boone Sanchez
[2020-11-09] MEDS ORDERED: TRANEXAMIC ACID / 0.7% NACL 1000MG/100ML BAG IV ONE (15:10)
[2020-11-09] MEDS ORDERED: TRANEXAMIC ACID 1,000 MG **IV Intra-op IV SCH (15:15)
[2020-11-09] MEDS ORDERED: Nursing to Pharmacy Communication SCH (15:15)
--- NOTE | 2020-11-09 15:55 | Operative Report ---
Post Operative Report Pre & Post Diagnosis Operation Date: 11/09/20 11:00 Pre-Op Diagnosis: Closed Fracture of Left Hip Post-Op Diagnosis: Closed Fracture of Left Hip I identified the patient and participated in the time-out.: Yes Procedure Operation Date: 11/09/20 11:00 Actual Procedures p Left Bipolar Hip Prosthesis(Left) - Boyd Salinas MD Surgeon Boyd Salinas MD Monitoring Specialist Suzanne HUGHES no resident or fellow available Estimated Blood Loss 50 Findings Consistent with Post-Op Diagnosis Specimens Femoral head Anesthesia Type Spinal MAC Complications none Disposition Accompanied Patient To Recovery: No Disposition: Recovery Room Indications Patient 70. Slipped and fell on the ice sustaining a oblique transcervical femoral neck fracture. Hemiarthroplasty is recommended and he agreed to proceed. Description of Procedure Informed consent obtained. Patient identified. He identified the operative site as the left hip. I marked with my initials. A preoperative surgical timeout was performed. Preop dose of IV antibiotics was given. He was positioned decubitus with the left side up. Stolberg positioner utilized. Impulse foot pumps for DVT prophylaxis. Postoperatively early mobility Lovenox and mechanical devices. The leg was prescrubbed and prepped and draped in the usual sterile fashion. A posterior approach to the hip was made. There was a large gluteus sundeep which was divided in line with the incision. The Charnley retractor was inserted after identifying the fat associated with the sciatic nerve. The short external rotators were elevated off of the greater trochanter and tagged for later repair. A double bend retractor was inserted underneath the gluteus minimus. The posterior capsule was then incised and elevated posterior tagged for later repair. The inferior capsule was incised. It was difficult to remove the femoral head but with use of a bone hook on the femur I was able to easily extracted. The labrum was intact and the acetabulum was normal. The ligamentum teres was excised. The femoral head measured 60 mm which is the largest size available. The 60 mm trial fit well and seated completely without any shuck The leg was placed into the 90-90 position. Soft tissue from the base of the greater trochanter was removed. Retractors were inserted to elevate the femur into the wound. Box cutting guide followed by canal finder and lateralizing reamer. A provisional neck cut was made at the current level of the fracture which was just under a fingerbreadth above the lesser trochanter. Broaching began at the small size and proceeded by 2 sizes until there was resistance at which time broaching proceeded by 1 size. Care was taken to lateralized the implant. Approximately 20 to 30 degrees of anteversion were instilled into the implant. The size 20 broach which is the third largest available seated well. It remained 2 to 3 mm proud. The calcar was planed. There was no rotational instability. I did not think a larger broach could fit. Trialing was performed and the high offset +6 neck length gave the best stability. The 0 had a substantial shock. The standard offset had a trace shuck in mid position. Leg lengths were difficult to determine but looked equal at the malleoli. The trial components were removed. The canal was irrigated and the 20 mm implant was inserted until it could not be advanced any further. It remained about 3 to 4 mm proud in terms of the porous coating. Trialing again was performed and the +6 had the best stability. There was no shock. The hip could be extended. The hip could be abducted maximally and internally rotated 45 degrees. The final head neck combination and shell were inserted after cleaning the taper. Meticulous hemostasis was performed throughout the surgery. The soft tissues were kept moist with copious lavage. Stability again was reassessed. I then repaired the short external rotators and joint capsule back to the hip abductor mechanism and greater trochanter using #1 Ethibond. The gluteal fascia was then closed with interrupted 0 Vicryl. The skin was closed in layers with 2-0 Vicryl and ezekiel on the skin. Xeroform 4 x 4's ABD foam tape applied. Patient was returned to the supine position and hip abduction pillow was inserted. The left leg appeared to be slightly longer than the right proximally half centimeter. The plan will be hip precautions. Weight-bear as tolerated with walker. PT OT. Lovenox for DVT prophylaxis. The components inserted were the [employer]in [employer] size 20 Taperloc stem high offset. A 60 mm bipolar shell and a 28mm diameter head with a +6 neck length. Components were press-fit. I attest to the content of the Intraoperative Record and any orders documented therein. Any exceptions are noted below.
[2020-11-09] MEDS ORDERED: oxyCODONE HCL IR 5 MG TAB (IMMEDIATE RELEASE) PO PRN ×2 (15:56→19:41)
[2020-11-09] MEDS ORDERED: NALOXONE HCL 0.4 MG/1 ML VIAL/CARP IV PRN (16:00)
[2020-11-09] MEDS ORDERED: ONDANSETRON INJ 2 MG/ML 2 ML VIAL IV PRN (16:00)
[2020-11-09] MEDS ORDERED: SODIUM CHLORIDE 0.9% 1000ML 1,000 ML IV SCH (16:00)
[2020-11-09] MEDS ORDERED: METOCLOPRAMIDE HCL INJ 5 MG/ML 2 ML VIAL IV PRN (16:00)
[2020-11-09] MEDS ORDERED: diphenhydrAMINE 50 MG/ML VIAL IV PRN (16:00)
[2020-11-09] MEDS ORDERED: DOCUSATE SODIUM 100 MG CAP PO PRN (16:00)
[2020-11-09] MEDS ORDERED: ePHEDrine sulfate 50 MG/ML AMP IV PRN (16:06)
[2020-11-09] MEDS ORDERED: ATROPINE SULFATE 0.1 MG/ML 10ML SYR IV PRN (16:06)
--- NOTE | 2020-11-09 16:07 | Operative Report ---
Post Operative Report Pre & Post Diagnosis Operation Date: 11/09/20 11:00 Pre-Op Diagnosis: Closed Fracture of Left Hip Post-Op Diagnosis: Closed Fracture of Left Hip I identified the patient and participated in the time-out.: Yes Procedure Operation Date: 11/09/20 11:00 Actual Procedures p Left Bipolar Hip Prosthesis(Left) - Boyd Salinas MD Surgeon Dr Salinas Acoustical Installer Suzanne HUGHES no resident or fellow available Estimated Blood Loss 50 Findings Consistent with Post-Op Diagnosis Specimens bone Complications none Description of Procedure See Dr Salinas note. I was life science research assistant during entire case to include prepping, draping, limb and instrument handling. wound closure, dressings. I attest to the content of the Intraoperative Record and any orders documented therein. Any exceptions are noted below.
--- NOTE | 2020-11-09 16:15 | Anesthesiology Progress Note ---
Date of Service November 09, 2020 Anesthesia Post Procedure Vital Signs Vital Signs: Temp Pulse Pulse Pulse Resp BP BP 11/09/20 16:13 36.8 C 63 19 106/60 11/09/20 16:05 36.8 C 64 21 108/58 L 11/09/20 15:55 61 19 107/61 11/09/20 15:46 36.8 C 65 16 128/73 11/09/20 08:36 36.9 C 66 16 121/70 11/08/20 23:53 37.2 C 69 16 119/71 11/08/20 20:30 63 14 11/08/20 20:23 64 22 122/69 11/08/20 20:00 62 24 11/08/20 19:30 80 16 11/08/20 19:01 22 11/08/20 19:00 82 19 153/78 H 11/08/20 18:30 61 20 132/72 11/08/20 18:06 36.9 C 64 19 146/87 H Pulse Ox 11/09/20 16:13 94 11/09/20 16:05 100 11/09/20 15:55 100 11/09/20 15:46 100 11/09/20 08:36 97 11/08/20 23:53 95 11/08/20 20:30 11/08/20 20:23 11/08/20 20:00 11/08/20 19:30 97 11/08/20 19:01 11/08/20 19:00 11/08/20 18:30 96 11/08/20 18:06 98 Pain Intensity Left Hip: Pain Intensity: 7 Transfer of Care Handoff Completed per policy Notes Mental Status: alert / awake / arousable Patient Amnestic to Procedure: Yes Nausea / Vomiting: adequately controlled Pain: adequately controlled Airway Patency, RR, SpO2: stable & adequate BP & HR: stable & adequate Hydration State: stable & adequate Neuraxial Anesthesia: was administered and sensory block is resolving Anesthetic Complications: no major complications apparent
--- NOTE | 2020-11-09 16:45 | XRay Report ---
XR hip LT min 2V CLINICAL HISTORY: Post-Operative implant position COMPARISON: Left hip radiographs November 08, 2020. FINDINGS: Alignment of the left hip arthroplasty is anatomic. Hardware is intact. There are no unexp ected radiopaque foreign bodies. There are skin ezekiel. IMPRESSION: Expected findings following left hip arthroplasty. ACT 112: Negative or not required by law. Electronically signed by: Yasmani Wu M.D. 11/09/2020 4:44 PM
[2020-11-09] MEDS: ACETAMINOPHEN 500 MG TAB PO PRN (18:43)
--- NOTE | 2020-11-09 18:49 | Hospitalist Progress Note ---
Date of Service November 09, 2020 Assessment & Plan (1) Closed fracture of left hip: Patient slipped on ice, leading to fall and left-sided hip fracture Appreciate input from orthopedics Status post left hip ORIF postoperative days 0 Continue pain management PT OT as per orthopedics Hypertension: On losartan and HCTZ DVT prophylaxis: SC Lovenox As per post hip surgery orthopedics protocol PT OT evaluation Patient is a full code Admission and Anticipated Discharge Date Admission Date: November 08, 2020 Subjective Follow up visit : s/p surgery of left hip seen post op experiencing pain on left hip surgical site increased IV Dilaudid to 2 mg PRN no complain of sob or chest pain no fever or chills Review of Systems Review of Systems: All systems reviewed & are unremarkable except as noted in HPI & below Physical Exam Constitutional: WD/WN, vitals as above Eyes: + anicteric sclerae ENMT: external ear and nose normal, oropharynx normal Neck: trachea midline, no thyromegaly Respiratory: normal respiratory effort, lungs clear to auscultation Cardiovascular: RRR, no murmur, no edema Gastrointestinal (Abdomen): Percussion/Palpation: abdomen soft; abdomen nontender Musculoskeletal: Hip: + surgical incision (s/p left hip surgery ) Skin: no rashes, warm and dry Neurologic: PERRL, EOMI, accommodation nl, no face palsy, no dysarthria Psychiatric: A+Ox3, euthymic affect Results & Data Results & Data ([facility]) Vital Signs (Past 12 Hours) Vital Signs Temp Pulse Pulse Resp BP Pulse Ox 11/09/20 17:45 36.9 C 72 16 138/64 97 11/09/20 17:14 36.5 C 61 16 137/70 95 11/09/20 16:57 36.7 C 71 20 133/66 96 11/09/20 16:13 36.8 C 63 19 106/60 94 11/09/20 16:05 36.8 C 64 21 108/58 L 100 11/09/20 15:55 61 19 107/61 100 11/09/20 15:46 36.8 C 65 16 128/73 100 11/09/20 08:36 36.9 C 66 16 121/70 97 (1) Closed fracture of left hip Encounter type: initial encounter Qualified Code(s): S72.002A - Fracture of unspecified part of neck of left femur, initial encounter for closed fracture
[2020-11-09] MEDS ORDERED: HYDROmorphone INJ 1 MG/ML SYRINGE IV STA (19:39)
[2020-11-09] MEDS ORDERED: HYDROmorphone INJ 0.5 MG/0.5 ML SYR IV PRN (19:40)
[2020-11-09] MEDS: ceFAZolin 2000MG 2,000 MG/15 ML SYR IV SCH (20:48)
[2020-11-09] MEDS: oxyCODONE HCL IR 5 MG TAB (IMMEDIATE RELEASE) PO PRN (23:44)
[2020-11-10] MEDS: oxyCODONE HCL IR 5 MG TAB (IMMEDIATE RELEASE) PO PRN (04:00)
[2020-11-10] MEDS: ceFAZolin 2000MG 2,000 MG/15 ML SYR IV SCH (04:04)
[2020-11-10 06:43] LABS: Basophils # (auto) 0.01 K/uL (0-0.2); Basophils % (auto) 0.1 %; Eosinophils # (auto) 0.01 K/uL (0-0.5); Eosinophils % (auto) 0.1 %; Hematocrit (blood only) 34.5 % (42-52); Hemoglobin 12.1 g/dL (14.0-18.0); Immature Granulocytes # (auto) 0.03 K/uL (0.00-0.02); Immature Granulocytes % (auto) 0.2 %; Lymphocytes % (auto) 6.9 %; Mean Corpuscular Hemoglobin 31.1 pg (25-34); Mean Corpuscular Hgb Conc 35.1 g/dL (32-36); Mean Corpuscular Volume 88.7 fL (80-100); Mean Platelet Volume 9.2 fL (7.4-10.4); Monocytes # (auto) 1.55 K/uL (0.11-0.59); Monocytes % (auto) 10.7 %; Neutrophils # (auto) 11.91 K/uL (1.4-6.5); Platelet Count 203 K/uL (130-400); RDW Coefficient of Variation 12.2 % (11.5-14.5); RDW Standard Deviation 39.4 fL (36.4-46.3); Red Blood Count 3.89 M/uL (4.7-6.1); White Blood Count 14.51 K/uL (4.8-10.8)
[2020-11-10] MEDS: ACETAMINOPHEN 500 MG TAB PO PRN ×3 (07:22→21:03)
[2020-11-10 07:23] LABS: BUN Creatinine Ratio 13.3 (10-20); Calcium 8.2 mg/dl (8.5-10.1); Creatinine Clr Calc Pharmacy 103.8 ml/min; Est GFR (African American) 102.1; Est GFR (Non-African American) 88.1; Potassium 3.5 mmol/L (3.5-5.1)
[2020-11-10] MEDS: ASPIRIN 81 MG ECTAB PO SCH (08:46)
[2020-11-10] MEDS: LOSARTAN/HCTZ 50/12.5MG TAB PO SCH (08:46)
[2020-11-10] MEDS: CALCIUM 600MG + VIT D 400 IU TAB PO SCH (08:46)
[2020-11-10] MEDS: ASCORBIC ACID 500 MG TAB PO SCH (08:47)
[2020-11-10] MEDS: MULTIVITAMIN TAB PO SCH (08:47)
[2020-11-10] MEDS: TAMSULOSIN HCL 0.4 MG CAP PO SCH ×2 (08:47→21:04)
[2020-11-10] MEDS: EZETIMIBE 10 MG TABLET PO SCH (08:47)
[2020-11-10] MEDS: PANTOprazole 40 MG TAB PO SCH (08:47)
[2020-11-10] MEDS: ENOXAPARIN INJ 30 MG/0.3 ML SYR SQ SCH ×2 (08:50→21:04)
[2020-11-10] MEDS ORDERED: ERGOCALCIFEROL 50,000 UNITS 1250 MCG CAP PO ONE (10:45)
--- NOTE | 2020-11-10 11:12 | Orthopedic Progress Note ---
Date of Service November 10, 2020 Assessment & Plan (1) Hip fracture, left: POD 1 S/P left bipolar hip secondary to fracture *Continue current diet *Continue DVT prophylaxis with lovenox, teds, and foot pumps *Continue ice to left hip as needed for pain *Pain medication adjusted to improve post-op pain *Ortho will plan to change dressing - *Continue PT/OT WBAT *SHP* Encourage hip abductor pillow while in bed *Continue medicine management *Dr Salinas recommends vit d 50,000 IU wkly x 6wks upon D/C *D/C planning to either rehab facility or home--Patient prefers home Present on Admission?: Yes Admission and Anticipated Discharge Date Admission Date: November 08, 2020 Subjective Patient in bed. Overall doing good. Says pain though hasnt been controlled with current medications. Saw therapy this AM. Patient says upon DC he is hoping to go home if possible. Denies CP, SOB, numbness, tingling, or radiation into legs. Physical Exam Physical Exam: Sitting up in bed. Left hip dressing intact. Ice to hip. No pillow was between his legs. Teds were removed and foot pumps off. Trace PE left leg. 1+ DP and PT pulses bilaterally. Able to wiggle toes and ankles bilaterally. Sensation intact to light touch bilaterally. Neg homans and calves soft bilaterally. Results & Data ([facility]) Vital Signs (Past 12 Hours) Vital Signs Temp Pulse Pulse Resp BP Pulse Ox 11/10/20 07:45 37.1 C 106 H 18 143/79 H 96 11/10/20 03:50 37.4 C 82 14 132/72 94 Laboratory Results 11/10/20 11/10/20 11/10/20 Range/Units 06:12 06:12 06:12 WBC 14.51 H (4.8-10.8) K/uL RBC 3.89 L (4.7-6.1) M/uL Hgb 12.1 L (14.0-18.0) g/dL Hct 34.5 L (42-52) % MCV 88.7 (80-100) fL MCH 31.1 (25-34) pg MCHC 35.1 (32-36) g/dL RDW Std Deviation 39.4 (36.4-46.3) fL RDW Coeff of Rory 12.2 (11.5-14.5) % Plt Count 203 (130-400) K/uL MPV 9.2 (7.4-10.4) fL Immature Gran % (Auto) 0.2 % Neut % (Auto) 82.0 % Lymph % (Auto) 6.9 % Stanley % (Auto) 10.7 % Eos % (Auto) 0.1 % Baso % (Auto) 0.1 % Neut # (Auto) 11.91 H (1.4-6.5) K/uL Lymph # (Auto) 1.00 L (1.2-3.4) K/uL Stanley # (Auto) 1.55 H (0.11-0.59) K/uL Eos # (Auto) 0.01 (0-0.5) K/uL Baso # (Auto) 0.01 (0-0.2) K/uL Immature Gran # (Auto) 0.03 H (0.00-0.02) K/uL Sodium 132 L (136-145) mmol/L Potassium 3.5 (3.5-5.1) mmol/L Chloride 101 (98-107) mmol/L Carbon Dioxide 24 (21-32) mmol/L Anion Gap 7.0 (3-11) BUN 11 (7-18) mg/dl Creatinine 0.84 (0.6-1.4) mg/dl Est Cr Clr Drug Dosing 103.8 ml/min Est GFR ( Amer) 102.1 Est GFR (Non-Af Amer) 88.1 BUN/Creatinine Ratio 13.3 (10-20) Glucose 141 H (70-99) mg/dl Calcium 8.2 L (8.5-10.1) mg/dl 25-OH Vitamin D Total 27.5 L (30-100) ng/ml
[2020-11-10] MEDS: traMADol HCL 50 MG TABLET PO PRN ×2 (13:45→21:03)
--- NOTE | 2020-11-10 18:46 | Hospitalist Progress Note ---
Date of Service November 10, 2020 Assessment & Plan (1) Closed fracture of left hip: Patient slipped on ice, leading to fall and left-sided hip fracture Appreciate input from orthopedics Status post left hip ORIF postoperative days # 2 H&H stable post op pain well controlled Hypertension: On losartan and HCTZ DVT prophylaxis: SC Lovenox As per post hip surgery orthopedics protocol PT OT evaluation Patient is a full code Admission and Anticipated Discharge Date Admission Date: November 08, 2020 Subjective Follow up visit : s/p surgery of left hip POD # 1 no complain of sob or chest pain no fever or chills Physical Exam Constitutional: WD/WN, vitals as above Eyes: + anicteric sclerae ENMT: external ear and nose normal, oropharynx normal Neck: trachea midline, no thyromegaly Respiratory: normal respiratory effort, lungs clear to auscultation Cardiovascular: RRR, no murmur, no edema Gastrointestinal (Abdomen): Percussion/Palpation: abdomen soft; abdomen nontender Musculoskeletal: Hip: + surgical incision (s/p left hip surgery ) Skin: no rashes, warm and dry Neurologic: PERRL, EOMI, accommodation nl, no face palsy, no dysarthria Psychiatric: A+Ox3, euthymic affect Results & Data Results & Data ([facility]) Vital Signs (Past 12 Hours) Vital Signs Temp Pulse Pulse Resp BP Pulse Ox 11/10/20 16:55 37.2 C 79 16 127/64 97 11/10/20 13:06 95 11/10/20 13:00 36.6 C 96 H 18 131/62 95 11/10/20 07:45 37.1 C 106 H 18 143/79 H 96 (1) Closed fracture of left hip Encounter type: initial encounter Qualified Code(s): S72.002A - Fracture of unspecified part of neck of left femur, initial encounter for closed fracture
[2020-11-11] MEDS: ACETAMINOPHEN 500 MG TAB PO PRN (04:13)
[2020-11-11] MEDS: traMADol HCL 50 MG TABLET PO PRN ×2 (04:13→16:36)
[2020-11-11] MEDS ORDERED: LEVOTHYROXINE SODIUM 175 MCG TABLET PO SCH (06:30)
[2020-11-11 07:28] LABS: Basophils # (auto) 0.02 K/uL (0-0.2); Basophils % (auto) 0.2 %; Eosinophils # (auto) 0.12 K/uL (0-0.5); Eosinophils % (auto) 1.2 %; Hematocrit (blood only) 27.6 % (42-52); Immature Granulocytes # (auto) 0.02 K/uL (0.00-0.02); Immature Granulocytes % (auto) 0.2 %; Lymphocytes # (auto) 1.13 K/uL (1.2-3.4); Lymphocytes % (auto) 11.6 %; Mean Corpuscular Hemoglobin 31.5 pg (25-34); Mean Corpuscular Hgb Conc 36.2 g/dL (32-36); Mean Corpuscular Volume 87.1 fL (80-100); Mean Platelet Volume 9.3 fL (7.4-10.4); Monocytes # (auto) 0.93 K/uL (0.11-0.59); Monocytes % (auto) 9.6 %; Neutrophils # (auto) 7.49 K/uL (1.4-6.5); Neutrophils % (auto) 77.2 %; Platelet Count 164 K/uL (130-400); RDW Coefficient of Variation 12.2 % (11.5-14.5); RDW Standard Deviation 39.5 fL (36.4-46.3); Red Blood Count 3.17 M/uL (4.7-6.1); White Blood Count 9.71 K/uL (4.8-10.8)
[2020-11-11 08:00] LABS: BUN Creatinine Ratio 12.8 (10-20); Calcium 8.4 mg/dl (8.5-10.1); Creatinine Clr Calc Pharmacy 95.8 ml/min; Est GFR (African American) 97.9; Est GFR (Non-African American) 84.5; Potassium 3.1 mmol/L (3.5-5.1)
[2020-11-11] MEDS: ENOXAPARIN INJ 30 MG/0.3 ML SYR SQ SCH (08:40)
[2020-11-11] MEDS: LOSARTAN/HCTZ 50/12.5MG TAB PO SCH (08:41)
[2020-11-11] MEDS: ASPIRIN 81 MG ECTAB PO SCH (08:41)
[2020-11-11] MEDS: ASCORBIC ACID 500 MG TAB PO SCH (08:41)
[2020-11-11] MEDS: PANTOprazole 40 MG TAB PO SCH (08:41)
[2020-11-11] MEDS: EZETIMIBE 10 MG TABLET PO SCH (08:41)
[2020-11-11] MEDS: MULTIVITAMIN TAB PO SCH (08:41)
[2020-11-11] MEDS: TAMSULOSIN HCL 0.4 MG CAP PO SCH (08:41)
--- NOTE | 2020-11-11 12:55 | Hospitalist Progress Note ---
Date of Service November 11, 2020 Assessment & Plan (1) Closed fracture of left hip: Patient slipped on ice, leading to fall and left-sided hip fracture Appreciate input from orthopedics Status post left hip ORIF postoperative days # 3 has recovered well post op appreciate PT/OT eval -can return home with home PT evaluated by Ortho today , pt is stable to discharged home Hypertension: BP stable On losartan and HCTZ DVT prophylaxis: SC Lovenox As per post hip surgery orthopedics protocol will need cont DVT prophylaxis for 4-6 weeks DISPOSITION : discharged home today will need referral for home PT script for rolling walker give to CM Admission and Anticipated Discharge Date Admission Date: November 08, 2020 Subjective Follow up visit : s/p surgery of left hip POD # 2 sitting on chair, left hip pain much improved offers no new complain no fever or chills vitals stable eager to be discharged home today Review of Systems Review of Systems: All systems reviewed & are unremarkable except as noted in HPI & below Physical Exam Constitutional: WD/WN, vitals as above Eyes: + anicteric sclerae ENMT: external ear and nose normal, oropharynx normal Neck: trachea midline, no thyromegaly Respiratory: normal respiratory effort, lungs clear to auscultation Cardiovascular: RRR, no murmur, no edema Gastrointestinal (Abdomen): Percussion/Palpation: abdomen soft; abdomen nontender Musculoskeletal: no cyanosis or clubbing, extremities motor strength 5/5 Skin: no rashes, warm and dry Neurologic: PERRL, EOMI, accommodation nl, no face palsy, no dysarthria Psychiatric: A+Ox3, euthymic affect Results & Data Results & Data ([facility]) Vital Signs (Past 12 Hours) Vital Signs Temp Pulse Resp BP Pulse Ox 11/11/20 07:29 36.7 C 69 18 107/57 L 95 (1) Closed fracture of left hip Encounter type: initial encounter Qualified Code(s): S72.002A - Fracture of unspecified part of neck of left femur, initial encounter for closed fracture
--- NOTE | 2020-11-11 13:04 | Discharge Summary ---
Date of Service November 11, 2020 Admission HPI Per Admitting Provider DICTATED BY: Irvin Nunes MD DATE OF ADMISSION: 11/08/2020 CHIEF COMPLAINT: Status post mechanical fall and left hip fracture. HISTORY OF PRESENT ILLNESS: A 70-year-old male with past medical history significant for hyperlipidemia, history of thyroid cancer, status post partial thyroidectomy, postoperative hypothyroidism, history of ascending aortic root dilatation, hypertension, reflux esophagitis, obstructive uropathy, BPH, Peyronie's disease, history of lumbar disc herniation, history of left knee arthritis, lumbar pars defect, splenic cyst, insomnia, history of small-bowel obstruction, status post fall. The patient was walking from his barn and slipped on ice and fell on his left side and could not get up. Called his grandson and had difficulty getting up and putting weight on his left leg and was brought in here and imaging studies show left hip fracture. Seen by ortho. Plan for surgery in the a.m. Currently resting comfortably. Says the pain medication is not helping him much and requested for a stronger medication. Denies any chest pain. No shortness of breath, no cough, no fever, no chills, no headache, no dizziness, no blurred vision, no earache, no runny nose, no sore throat, no nausea, no vomiting, no abdominal pain, no diarrhea or constipation, no blood in stool or black stools. Normal bladder movements. The patient says otherwise he is active and can walk and climb steps without any issues. Principal Diagnosis LEFT HIP FRACTURE S/P HIP SURGERY Discharge Exam Constitutional WD/WN, vitals as above Eyes + anicteric sclerae ENMT external ear and nose normal, oropharynx normal Neck trachea midline, no thyromegaly Respiratory normal respiratory effort, lungs clear to auscultation Cardiovascular RRR, no murmur, no edema Gastrointestinal (Abdomen) Percussion/Palpation: abdomen soft; abdomen nontender Musculoskeletal no cyanosis or clubbing, extremities motor strength 5/5 Hip: + surgical incision (s/p left hip surgery ) Skin no rashes, warm and dry Neurologic PERRL, EOMI, accommodation nl, no face palsy, no dysarthria Psychiatric A+Ox3, euthymic affect Discharge Data Allergies Allergy/AdvReac Type Severity Reaction Status Date / Time lisinopril AdvReac Intermediate Cough Verified 11/08/20 20:01 Consultations 11/08/20 20:03 ED Decision to Admit Stat 11/08/20 23:35 Consult Case Management - Discharge Planning Routine Consult Orthopedic Surgery Routine 11/09/20 16:00 Consult Case Management - Discharge Planning Routine Procedures Performed Operation Date: 11/09/20 11:00 Actual Procedures p Left Bipolar Hip Prosthesis(Left) - Boyd Salinas MD Hospital Course (1) Closed fracture of left hip: Patient slipped on ice, leading to fall and left-sided hip fracture Appreciate input from orthopedics Status post left hip ORIF postoperative days # 3 has recovered well post op appreciate PT/OT eval -can return home with home PT evaluated by Ortho today , pt is stable to discharged home Hypertension: BP stable On losartan and HCTZ DVT prophylaxis: SC Lovenox As per post hip surgery orthopedics protocol will need cont DVT prophylaxis for 4-6 weeks DISPOSITION : discharged home today will need referral for home PT script for rolling walker give to CM Total Time Total Time Spent Total Time Spent (In Minutes): approx 40 mins Total Time Includes: Examination of the Patient, Discharge Planning, Medication Reconciliation and Communication With Other Providers Discharge Plan Discharge Items Patient Disposition: Home - Home Health Services Reason For Visit: FALL Discharge Diagnosis: status post hip hemiarthroplasty/Fall/left hip fracture Condition on Discharge: Good Activity: Per Instructions section Lifting: Wait until after follow-up appointment Bathing: Keep incision dry Bathing Comment: Pt may shower after 11/16/20. No prolonged soaking. Sexual Activity: Wait until after follow-up appointment Exercise/Sports: Wait until after follow-up appointment Driving/Machine Use: No driving until cleared by Dr. Salinas Weightbearing: Full weightbearing Non-emergency contact: Primary Care Provider and Surgeon Call non-emergency contact if: you have any medication questions, your pain is not controlled, your temperature is above 101, your wound has increased redness, your wound has increased drainage and your wound pain has increased Follow-up/Referrals: Boyd Kay MD [Primary Care Provider] - (Date & Time 11/18/2020 11:00 AM Provider Boyd Kay MD Department Family [facility] ) Boyd Salinas MD [Surgeon] - 11/25/20 (for Staple removal ) Diet: Heart Healthy Addtl Attending Provider Instructions: New Medicine: * You will likely be taking one or more of these medications: 1. Percocet - Take, as directed, when you need it, every four to six hours to control your pain. 2. Tramadol - Take every 6 hours as needed for pain control 3. Colace & Senokot - Take to prevent constipation which can be caused by narcotics. These can be bought [id number] at the pharmacy * The most common side effects of pain medicine and iron are nausea and constipation. If nausea or constipation is too much of a problem or if you have any questions about your new medicines or doses, call [facility] at . We will try to help you manage these issues. "VERY IMPORTANT TO READ AND REVIEW" Blood Clots and Blood Thinning Medicine: * You are given Lovenox during the immediate post-operative period to lessen the risk of blood clots forming in your legs and/or lungs. Lovenox is usually given for six weeks after surgery. Physical Therapy: * Do your physical therapy at home. These are the exercises you learned while in the hospital (quad sets, leg raises, calf pumps, gluteal squeezes, knee bending, and heel props.) You should do these exercises 3-4 times per day. * You will either go home with Home Therapy and nursing or home with outpatient rehab. You should do rehab with the therapist 2-3 times per week. You should do therapy on your own daily. * You may bear full weight on your leg with crutches or walker unless otherwise advised. Home Exercise: * You were shown a series of exercises (heel props, heel slides, etc.) in the hospital. Do these exercises three to four times each day including the exercises you were shown in physical therapy. Walking: * You may be up for short periods of time. Standing and walking for 1-2 hours at a time is usually ok. You should not stand or walk for excessive periods of time as this may cause increased pain and swelling. SELF CARE INSTRUCTIONS AFTER TOTAL HIP REPLACEMENT Until the incision and soft tissues around your hip have healed, there is a possibility that the hip prosthesis could dislocate. A. Observe the following precautions to prevent dislocation: 1. Don't bend your hip greater than 90 degrees. 2. Avoid crossing your legs or ankles while standing or lying. 3. Sit with your feet placed 6 inches apart. 4. When sitting, keep your knees below your hips. Sit on a firm surface, avoid deep, soft chairs and couches. Use an elevated toilet seat in the bathroom. 5. Don't bend over at the waist. Use a long handled shoehorn and a sock aid to help you put on your shoes and socks. A lehr stripper can help you supervisor picking crew objects that are too high or too low to reach. 6. Keep car riding to a minimum for at least one month after surgery. B. Your balance may be shaky for a while. Use crutches or a walker until directed by your doctor. C. Use hand rails when walking on stairs. D. Wear low heeled shoes with non-slip soles. E. Be sure that your floors are free of things that could trip you - throw rugs, electrical cords, small objects. Avoid wet and waxed floors, especially w ith crutches and canes. F. Try to walk several times a day with rest periods between. G. Continue with all the exercises taught to you in the hospital. Again, make walking a part of your daily routine. VERY IMPORTANT TO READ AND REVIEW A. Take Lovenox (blood thinning medication) as directed by your doctor. B. There are a few signs you need to watch for after you are home. If you notice any of the followin. Increased severe hip pain. Some pain is expected especially when you ex ercise. 2. Increased swelling in your leg or knee; pain or swelling of the calf muscle in either lower leg. 3. Any fluid drainage from the incision. 4. Shortness of breath or chest pain. TEDs/Elastic Stockings: * The white elastic stockings help limit swelling and prevent blood clots from forming in your legs. The more you wear them, the more they work. * Wear them for six weeks. Prevention of Infection: * Take antibiotics one hour before any dental cleaning, dental work, urological procedure, gastrointestinal procedure or any invasive surgery in order to prevent your new joint from getting infected. * You may get the antibiotics from the doctor performing the procedure or we will call in a prescription to the pharmacy of your choice. Call the office for a prescription at least 2 days prior to your appointment. Things to Watch For: * Drainage from the incision site that occurs more than one week after your surgery. * Severely increased leg pain or swelling. * Increased redness at the incision site. * Fever above 101 degrees Fahrenheit. * Unusual chest pain or shortness of breath. * Unusual pain or burning with urination. Follow-Up Visit: You will follow-up with Dr. Salinas 13-14 days after surgery. The office number is . Avoid all tobacco products. If you need help to stop smoking, call [facility] at . This is a free call. Have your blood counts rechecked on . Follow up in the office at 1pm in the office with Dr. Salinas for staple removal. Pending Studies at Discharge: No Stand-Alone Forms: My [facility], Smoking Cessation Medications and DC Order Prescriptions: New oxycodone-acetaminophen [Percocet] 5-325 mg tablet 2 tab PO Q4H PRN (Reason: pain) Qty: 24 RF: 0 enoxaparin [Lovenox] 30 mg/0.3 mL syringe 30 mg subcut Q12H Qty: 8.4 RF: 1 tramadol 50 mg tablet 50 mg PO Q6H PRN (Reason: pain) Qty: 12 RF: 0 Continued multivitamin Tablet 1 tab PO QAM RF: 0 levothyroxine 175 mcg tablet See Rx Instructions .ROUTE .COMPLEX RF: 0 aspirin 81 mg Tablet,Delayed Release (Dr/Ec) 81 mg PO QAM RF: 0 losartan-hydrochlorothiazide 100-25 mg tablet 1 tab PO QAM RF: 0 ascorbic acid (vitamin C) 500 mg Tablet 500 mg PO QAM RF: 0 tamsulosin 0.4 mg capsule 0.4 mg PO BID RF: 0 pantoprazole 40 mg tablet,delayed release (DR/EC) 40 mg PO QAM RF: 0 glucosamine-chondroitin [Osteo Bi-Flex] 250-200 mg Tablet 1 tab PO BID RF: 0 calcium carbonate 600 mg calcium (1,500 mg) Tablet 300 mg PO Q2D RF: 0 ezetimibe 10 mg tablet 10 mg PO QAM RF: 0 Discontinued tramadol 50 mg tablet 50 mg PO Q6H PRN (Reason: Pain) RF: 0 Discharge Orders: Discharge Order (Routine); Ordered 11/11/20 Ordered By: Yousif Aragon Admission Data Admit Date/Time: 11/08/20 21:36 Attending Provider: Hemalatha Mehta Admit Provider: Irvin Nunes Primary Care Provider: Boyd Kay Other Providers: Roger Stout ; Irvin Nunes ; Boyd Salinas
--- NOTE | 2020-11-11 13:33 | Progress Notes ---
DATE: 11/11/2020 Sitting up in chair. No problems are noted. Up with PT and did well. Has not really noticed any significant leg length inequalities. Pain is well controlled. Interested in going home. He is afebrile. His vital signs are stable. His labs are noted. White count 10, hemoglobin 10, hematocrit 28, platelets 164. PRP is noted. Distal neurovascular intact. Strength 5/5 throughout. Incision benign. Dressing removed. No fluctuance. No hematoma. IMPRESSION: He is postoperative day #2 status post left hip hemiarthroplasty for a femoral neck fracture. PLAN: Continue Lovenox 30 mg subQ b.i.d. for 2 weeks with a refill. Pain medication, stool softener. If he has done well with PT and there are no other reasons to keep him in the hospital, we could consider discharging him home. He is educated about some general do's and don'ts. He will need home PT, OT and nursing. Check CBC later this week and then weekly on the Lovenox. Total hip precautions and appropriate activity levels are discussed and reinforced. Bathing instructions are given. Follow up with me 2 weeks postop. If there are any problems with pain, swelling, fevers, numbness, drainage, let me know. Change dressing daily.
== END 2020-11-11 17:41 | disposition home health service (06) | DRG 522 ==
LOC: ED 17:59 → 3N 21:36 → SUATTDRO 21:36 → 3N 11-09 00:27